=== PATIENT | female | born 1935 | race African-American/Black ===

== ENCOUNTER 2016-10-01 09:46 | Inpatient (IN) ==
[2016-10-01] MEDS ORDERED: ENOXAPARIN 100 MG/ML SYRINGE SUBCUT STA (10:16)
[2016-10-01] MEDS ORDERED: NITROGLYCERIN 2% OINT 1 INCH/GM PACK TOP STA (10:17)
[2016-10-01] MEDS ORDERED: NITROGLYCERIN 2% OINT 1 INCH/GM PACK TOP ONE (10:30)
[2016-10-01] MEDS ORDERED: ENOXAPARIN 80 MG/0.8 ML SYRINGE SUBCUT ONE (10:30)
--- NOTE | 2016-10-01 11:08 | XRay Report ---
XR chest 1V portable Indication: Shortness of breath. Chest one view: Comparison 06/08/2015. Pacemaker device and borderline cardiomegaly are stable. When compared to the prior examination, lungs are much better aerated than previous, although there is minimal interstitial prominence noted bilaterally. Lungs are hypoinflated as well suggesting an element of atelectasis. Surgical clips right axilla noted. Impression: Pulmonary hypoinflation and atelectasis. Borderline cardiomegaly. Markedly improved aeration when compared to May 2015. PROCEDURE INTERPRETED AT [facility] DEPARTMENT OF RADIOLOGY Final Report Signed by: Olvin Miranda M.D.
[2016-10-01 11:44] LABS: Basophils # 0.1 10*3/uL (0.0-0.2); Basophils % 1.4 % (0.0-0.8); Eosinophils # 0.5 10*3/uL (0.0-0.87); Eosinophils % 5.1 % (0.00-10.9); Hematocrit 34.4 VOL% (35.7-47.0); Hemoglobin 11.9 GM/DL (12.0-16.0); Immature Granulocytes % 0.3 %; Immature Granulocytes Absolute 0.03 #; Lymphocytes % 21.1 % (21.3-54.2); Mean Corpuscular HGB Conc 34.6 GM/DL (32-36); Mean Corpuscular Hemoglobin 24 PG (27-34); Mean Corpuscular Volume 68.9 FL (87-102); Mean Platelet Volume 9.8 FL (9.6-12.0); Monocytes # 0.6 10*3/uL (0.11-0.8); Monocytes % 6.1 % (1.7-12.7); Neutrophils # 6.2 10*3/uL (1.4-7.4); Platelet Count 232 T/CUMM (130-400); Red Blood Count 4.99 MC/CUMM (3.8-5.5); White Blood Count 9.4 T/CUMM (4-12)
[2016-10-01 11:51] LABS: Albumin 3.7 G/DL (3.4-5.0); Bilirubin,Total 0.5 MG/DL (0.2-1.0); Calcium 9.5 MG/DL (8.5-10.1); Osmolality,Calculated 282.1 MOS/KG (273-304); Potassium 4.2 MMOL/L (3.5-5.1); Thyroid Stimulating Hormone 0.939 uIU/ml (0.358-3.74); Total Protein 6.9 G/DL (6.4-8.3)
[2016-10-01 11:53] LABS: Troponin I Only 0.523 NG/ML (0.00-0.045)
[2016-10-01] MEDS ORDERED: NITROGLYCERIN SL 0.4 MG TABLET SL PRN (12:06)
[2016-10-01] MEDS ORDERED: MORPHINE 2 MG/1 ML SYRINGE IV PRN (12:06)
[2016-10-01] MEDS ORDERED: MAGNESIUM SULF RIDER 2 GM in PREMIX 1 EACH IV PRN (12:06)
[2016-10-01] MEDS ORDERED: ZALEPLON 5 MG CAPSULE PO PRN (12:06)
[2016-10-01] MEDS ORDERED: ONDANSETRON 4 MG/2 ML VIAL IV PRN (12:06)
[2016-10-01] MEDS ORDERED: MAGNESIUM SULF RIDER 4 GM in PREMIX 1 EACH IV PRN (12:06)
--- NOTE | 2016-10-01 12:06 | Emergency Department Note ---
Jonathan Sadler Brittany, am scribing for, and in the presence of, Alli Parada MD 10:19. Tal Sadler Doug C, MD, personally performed the services described in this documentation, ascribed by Nathalia Castillo in my presence, and it is both accurate and complete . Arrival - Arrival Chief Complaint: Arrhythmia/Palpitations Stated Complaint: heart pain ED Nursing Triage Note: Pt c/o palpitations, CP, and dizziness onset this am. Denies SOB Mode of Arrival: Ambulatory Limitations: No Limitations Source: Patient, RN Notes Reviewed - History of Present Illness HPI Narrative: Patient is a 80-year-old black female who states she developed palpitations, chest pain and weakness around 730 this morning. Patient's pain was brief but intense. Patient states she was frightened by this event and decided she should come the emergency room. Patient denies any associated nausea, vomiting , diaphoresis or radiation of discomfort. Patient states she has a history of coronary artery disease. Patient states he took a nitroglycerin at home when her pain is now relieved. Patient also has a history of a AICD placement but denies being shocked. Onset (ago): hour(s) (2) Consistency: constant Allergies/Adverse Reactions: Allergies Allergy/AdvReac Type Severity Reaction Status Date / Time acetaminophen [From Lortab] Allergy ITCHING Verified 10/01/16 09:55 hydrocodone [From Lortab] Allergy ITCHING Verified 10/01/16 09:55 Home Medications: Home Medications Medication Instructions Recorded Confirmed Type Ferrous Sulfate Tab [Feosol 325 mg PO BID 06/08/15 10/01/16 History Original Tab] Lisinopril/Hctz 20-25 [Prinzide 1 tablet PO DAILY 06/08/15 10/01/16 History 20-25] amLODIPine [Norvasc] 10 mg PO DAILY 06/08/15 10/01/16 History sitaGLIPtin [Januvia] 100 mg PO DAILY 06/08/15 10/01/16 History Aspirin EC Tab 81 mg PO DAILY tablet 06/10/15 10/01/16 Rx Carvedilol [Coreg] 25 mg PO BID tablet 06/10/15 10/01/16 Rx Cholecalciferol [Vitamin D3] 5,000 unit PO DAILY tablet 06/10/15 10/01/16 Rx Atorvastatin Calcium 20 mg PO DAILY 10/01/16 10/01/16 History Folic Acid Tab 1 mg PO DAILY 10/01/16 10/01/16 History Furosemide Tab [Lasix Tab] 40 mg PO BID 10/01/16 10/01/16 History Levocetirizine Dihydrochloride 5 mg PO QAM PRN 10/01/16 10/01/16 History Magnesium Oxide 400 mg PO DAILY 10/01/16 10/01/16 History Omeprazole [Prilosec] 20 mg PO BEDTIME 10/01/16 10/01/16 History Potassium Chloride 8 meq PO DAILY 10/01/16 10/01/16 History cloNIDine TAB [Catapres Tab] 0.2 mg PO DAILY 10/01/16 10/01/16 History Review of System - Review of System 12 point system: reviewed and no additional remarkable complaints except as stated - Review of System Constitutional: Absent: chills, diaphoresis, fever Eyes: Absent: vision change Head/Ears/Nose/Throat: Absent: nasal drainage, sore throat Respiratory: Absent: respiratory distress Cardiovascular: Present: chest pain, palpitations, syncope (near syncopal) Gastrointestinal: Absent: abdominal pain, nausea, vomiting, diarrhea, constipation Genitourinary female: Absent: dysuria, frequency, urgency Musculoskeletal: Absent: arm pain, back pain, leg pain, neck pain Skin: Absent: rash Neurological: Present: vertigo. Absent: headache Psychiatric: Absent: anxiety, depression Medical,Surgical,& Family Hx - Medical History Cardio: History of: CHF, Hypertension, [place] Neurology: No history of: Seizures Endocrine: History of: Diabetes Mellitus (NIDDM) Rheumatology: History of;: Gout Gastrointestinal: History of: GERD, Polyps - Surgical History Cardiac Surgeries: Sugical HX of: Internal Defibrillator Neurologic Surgeries: Patient denies: Neurologic Surgery Abdominal Surgeries: Surgical HX of: Appendectomy Reproductive Surgeries: Surgical HX of;: Breast Surgery (Bilateral Mastectomy), Hysterectomy, Tubal Ligation - Family History Family History: Reports;: Family Heart Disease (grandfather-htn) - Social History Smoking Status: Never smoker Frequency of Alcohol Use: None Type of Drug Use: None Exam Vital Signs: Vital Signs Temperature 97.5 F L 10/01/16 10:15 Pulse Rate 70 10/01/16 11:15 Respiratory Rate 18 06/18/17 11:15 Blood Pressure 154/72 10/01/16 11:15 O2 Sat by Pulse Oximetry 96 10/01/16 11:15 - General General appearance: alert, in no apparent distress - Head Head exam: Present: atraumatic, normocephalic, normal inspection - Eye Eye exam: Present: normal appearance, PERRL, EOMI - ENT ENT exam: Present: normal exam, normal oropharynx - Neck Neck exam: Present: normal inspection, full ROM, trachea midline - Chest Chest inspection: Present: symmetric chest wall rise. Absent: normal inspection (bilateral mastectomy) - Respiratory Respiratory exam: Present: normal lung sounds bilaterally. Absent: rales, rhonchi, wheezes - Cardiovascular Cardiovascular exam: Present: regular rate, normal rhythm, normal heart sounds. Absent: murmur, rubs, gallop - Abdominal Exam Abdominal exam: Present: soft, normal bowel sounds. Absent: distention, tenderness - Extremities Exam Extremities exam: Present: full ROM. Absent: normal inspection (lymphedema of the right upper extremity) - Back Exam Back exam: Present: normal inspection - Neurological Exam Neurological exam: Present: alert, oriented X3, CN II-XII intact. Absent: motor sensory deficit - Psychiatric Psychiatric exam: Present: normal affect, normal mood - Skin Skin exam: Present: warm, dry Course Course Narrative: Patient's clinical presentation, laboratory and radiograph findings were discussed with Dr. Tong Sun and patient be admitted to the Dr. Cunha service to the telemetry unit. Patient has been pain-free since her arrival here in the emergency room. Results - Labs CBC & BMP: 10/01/16 11:38 10/01/16 10:10 Lab Results: I have reviewed the patients labs Labs: Laboratory Tests 10/01/16 10:10 Magnesium 1.5 L Laboratory Tests 10/01/16 10/01/16 10:10 11:38 WBC 9.4 RBC 4.99 Hgb 11.9 L Hct 34.4 L MCV 68.9 L MCH 24 L Plt Count 232 Lymph % (Auto) 21.1 L Baso % (Auto) 1.4 H Sodium 135 L Potassium 4.2 Chloride 98 Carbon Dioxide 23 Anion Gap 18.2 H BUN 37 H Creatinine 1.20 H GFR Calculation 51 BUN/Creatinine Ratio 30.00 H Glucose 179 H Calcium 9.5 Troponin I 0.523 H - EKG EKG results: interpreted by SHABBIR, sinus rhythm (75 bpm), no acute changes - Diagnostic Findings Procedure: Chest x-ray: report reviewed by me (Pulmonary hypoinflation and atelectasis. Borderline cardiomegaly. Markedly improved aeration when compared to May 2015.) Disposition Clinical Impression: Non-STEMI (non-ST elevated myocardial infarction) Case discussed with: patient Disposition: Still a Patient Condition: Stable Time of Disposition: 12:06
--- NOTE | 2016-10-01 12:17 | EKG Report ---
Stationary ECG Study [facility] ER Test Date: 10/01/2016 10:01:58 AM Pat Name: ALIN FLYNN Department: Room: Gender: F [place]: Hannah Bruno : 1935 Requested by: Mike Sierra Order Number: [id number] Reading MD: MIKE EL Intervals [place] Rate: 75 P: 80 CO: 231 QRS: 0 QRSD: 104 T: 87 QT: 366 QTc: 394 Interpretive Statements SINUS RHYTHM WITH FIRST DEGREE AV BLOCK WITH OCCASIONAL VENTRICULAR PREMATURE COMPLEXES RSR (QR) IN V1/V2 CONSISTENT WITH RIGHT VENTRICULAR CONDUCTION DELAY POSSIBLE INFERIOR INFARCT, AGE UNDETERMINED ANTEROLATERAL INFARCT, PROBABLY RECENT Electronically Signed On 10-02-16 06:56:10 CDT by MIKE EL [email or web address]
[2016-10-01] MEDS ORDERED: CETIRIZINE 10 MG TABLET PO PRN (13:04)
[2016-10-01] MEDS: ENOXAPARIN 80 MG/0.8 ML SYRINGE SUBCUT SCH ×2 (13:15→23:54)
[2016-10-01] MEDS: SODIUM CHLORIDE 0.45% 1,000 ML IV SCH (13:52)
[2016-10-01 14:10] LABS: Apearance,Urine CLEAR (Clear); Bilirubin,Urine Negative (Negative); Blood, Urine Negative (Negative); Glucose,Urine (UA) Negative (Negative); Ketones,Urine Negative (Negative); Nitrite,Urine Negative (Negative); Protein,Urine Negative; Squamous Epithelial Cell,Urine Occasional /HPF (0-10); Urine Color Straw (Yellow); Urine Specific Gravity 1.004 (1.001-1.035); Urine Urobilinogen < 2.0 EU/DL (0.2-1.0); WBC,Urine 1 /HPF (0-6)
--- NOTE | 2016-10-01 14:52 | Cardiology History & Physical ---
Assessment and Plan (1) Chest pain Status: Acute Assessment and plan: 1. 80-year-old modestly overweight hypertensive diabetic with remote anterior [place] 1993 with angioplasty, status post heart catheterization 16 months ago had sudden palpitations and brief severe chest pain for only a minute or so this morning which alarmed her, but no symptoms before that or after that. 2. Modest troponin elevation of 0.5 initially less than 3 hours after the event. 3. EKG shows old anterolateral [place] no change from previous. 4. Ms. London follows up with Dr. Cunha 5. Possible nonsustained VT? Given history, but this is not been seen on telemetry at 72 will have her ICD single-chamber interrogated in the morning ( single-chamber replaced May 2012 for EOL) 6. Ejection fraction approximate 30% in the past; an approximate 25% and her heart catheterization. Current Visit: Yes (2) Palpitation Status: Acute Current Visit: Yes (3) Cardiomyopathy Status: Acute Current Visit: Yes History of Present Illness History of present illness: Ms. London is a 80 year old female followed Dr. son with remote anterior [place] with reported angioplasty 1993. This morning at 7:30 AM she had sudden palpitations with severe upper midsternal chest pain lasting less than a minute. She denies shortness of breath presyncope or syncope. She has not had significant swelling. She has been her usual self in the last few days with no problems. Home Medications Medication Instructions Recorded Confirmed Type Ferrous Sulfate Tab [Feosol 325 mg PO BID 06/08/15 10/01/16 History Original Tab] Lisinopril/Hctz 20-25 [Prinzide 1 tablet PO DAILY 06/08/15 10/01/16 History 20-25] amLODIPine [Norvasc] 10 mg PO DAILY 06/08/15 10/01/16 History sitaGLIPtin [Januvia] 100 mg PO DAILY 06/08/15 10/01/16 History Aspirin EC Tab 81 mg PO DAILY tablet 06/10/15 10/01/16 Rx Carvedilol [Coreg] 25 mg PO BID tablet 06/10/15 10/01/16 Rx Cholecalciferol [Vitamin D3] 5,000 unit PO DAILY tablet 06/10/15 10/01/16 Rx Atorvastatin Calcium 20 mg PO DAILY 10/01/16 10/01/16 History Folic Acid Tab 1 mg PO DAILY 10/01/16 10/01/16 History Furosemide Tab [Lasix Tab] 40 mg PO BID 10/01/16 10/01/16 History Levocetirizine Dihydrochloride 5 mg PO QAM PRN 10/01/16 10/01/16 History Magnesium Oxide 400 mg PO DAILY 10/01/16 10/01/16 History Omeprazole [Prilosec] 20 mg PO BEDTIME 10/01/16 10/01/16 History Potassium Chloride 8 meq PO DAILY 10/01/16 10/01/16 History cloNIDine TAB [Catapres Tab] 0.2 mg PO DAILY 10/01/16 10/01/16 History Allergies Allergy/AdvReac Type Severity Reaction Status Date / Time acetaminophen [From Lortab] Allergy ITCHING Verified 10/01/16 09:55 hydrocodone [From Lortab] Allergy ITCHING Verified 10/01/16 09:55 Medical,Surgical,& Family Hx - Medical History Cardio: History of: CHF, Hypertension, [place] Neurology: No history of: Seizures Endocrine: History of: Diabetes Mellitus (NIDDM) Rheumatology: History of;: Gout Gastrointestinal: History of: GERD, Polyps - Surgical History Cardiac Surgeries: Sugical HX of: Internal Defibrillator Neurologic Surgeries: Patient denies: Neurologic Surgery Abdominal Surgeries: Surgical HX of: Appendectomy Reproductive Surgeries: Surgical HX of;: Breast Surgery (Bilateral Mastectomy), Hysterectomy, Tubal Ligation - Family History Family History: Reports;: Family Heart Disease (grandfather-htn) - Social History Smoking Status: Never smoker Frequency of Alcohol Use: None Type of Drug Use: None Cardiology Physical Exam - Constitutional Vitals: Vital Signs Temp Pulse Resp BP Pulse Ox 97.5 F L 78 20 154/76 95 10/01/16 10:15 10/01/16 13:05 10/01/16 13:54 10/01/16 12:15 10/01/16 12:15 Intake and Output 09/30/16 10/01/16 10/01/16 23:59 07:59 15:59 Intake Total 240 / 240 Output Total 300 / 300 Balance -60 / -60 Intake: Oral 240 / 240 Output: Urine 300 / 300 Other: Weight 75.977 kg Patient Weight 10/01/16 23:59 Weight 75.977 kg General appearance: no acute distress, over weight - Head Head exam: Present: normal inspection, normocephalic, atraumatic - Respiratory Respiratory exam: Present: clear to auscultation bilaterally. Absent: stridor, wheezes - Cardiovascular Cardiovascular exam: Present: regular rate and rhythm. Absent: diastolic murmur , rubs - GI/Abdominal GI/Abdominal exam: Present: soft. Absent: tenderness - Extremities Exam Extremities exam: Present: other (Trace lower extremity edema) - Neurological Exam Neurological exam: Present: alert, oriented X3 Result/EKG - Labs CBC & BMP: 10/01/16 11:38 10/01/16 10:10 Labs: Laboratory Results - last 24 hr 10/01/16 10/01/16 10/01/16 10:10 10:10 11:38 WBC 9.4 RBC 4.99 Hgb 11.9 L Hct 34.4 L MCV 68.9 L MCH 24 L MCHC 34.6 RDW 16.0 Plt Count 232 MPV 9.8 Neut % (Auto) 66.0 Lymph % (Auto) 21.1 L Island % (Auto) 6.1 Eos % (Auto) 5.1 Baso % (Auto) 1.4 H Neut # (Auto) 6.2 Lymph # (Auto) 2.0 Island # (Auto) 0.6 Eos # (Auto) 0.5 Baso # (Auto) 0.1 Immature Gran % 0.3 Nucleated RBC % 0.0 Immature Gran # 0.03 Nucleated RBCs # 0.00 Sodium 135 L Potassium 4.2 Chloride 98 Carbon Dioxide 23 Anion Gap 18.2 H BUN 37 H Creatinine 1.20 H GFR Calculation 51 BUN/Creatinine Ratio 30.00 H Glucose 179 H Calculated Osmolality 282.1 Calcium 9.5 Magnesium 1.5 L Total Bilirubin 0.50 AST 37 ALT 28 Alkaline Phosphatase 111 Troponin I 0.523 H Total Protein 6.9 Albumin 3.7 Globulin 3.2 Albumin/Globulin Ratio 1.1 TSH 3rd Generation 0.939 Urine Color Urine Appearance Urine pH Ur Specific [place] Urine Protein Urine Glucose (UA) Urine Ketones Urine Blood Urine Nitrate Urine Bilirubin Urine Urobilinogen Urine Leukocytes Urine WBC Ur Squamous Epith Cells Ur Culture Indicated? 10/01/16 13:40 WBC RBC Hgb Hct MCV MCH MCHC RDW Plt Count MPV Neut % (Auto) Lymph % (Auto) Island % (Auto) Eos % (Auto) Baso % (Auto) Neut # (Auto) Lymph # (Auto) Island # (Auto) Eos # (Auto) Baso # (Auto) Immature Gran % Nucleated RBC % Immature Gran # Nucleated RBCs # Sodium Potassium Chloride Carbon Dioxide Anion Gap BUN Creatinine GFR Calculation BUN/Creatinine Ratio Glucose Calculated Osmolality Calcium Magnesium Total Bilirubin AST ALT Alkaline Phosphatase Troponin I Total Protein Albumin Globulin Albumin/Globulin Ratio TSH 3rd Generation Urine Color Straw Urine Appearance Clear Urine pH 7.0 Ur Specific [place] 1.004 Urine Protein Negative Urine Glucose (UA) Negative Urine Ketones Negative Urine Blood Negative Urine Nitrate Negative Urine Bilirubin Negative Urine Urobilinogen < 2.0 H Urine Leukocytes Trace Urine WBC 1 Ur Squamous Epith Cells Occasional Ur Culture Indicated? Not indicated
--- NOTE | 2016-10-01 15:07 | EKG Report ---
Stationary ECG Study [facility] Test Date: 10/01/2016 3:07:03 PM Pat Name: ALIN FLYNN Department: Room: 280 Gender: F Epic Application Coordinator: COOPER : 1935 Requested by: Mike Sierra Order Number: [id number] Reading MD: MIKE EL Intervals [place] Rate: 76 P: 78 ME: 224 QRS: -29 QRSD: 101 T: 79 QT: 364 QTc: 394 Interpretive Statements SINUS RHYTHM WITH PROLONGED ME INTERVAL WITH FREQUENT VENTRICULAR PREMATURE COMPLEXES INFEROLATERAL MYOCARDIAL INFARCTION, OF INDETERMINATE POSSIBLE IN EVOLUTION/RECENT. Electronically Signed On 10-02-16 07:21:11 CDT by MIKE EL [email or web address]
[2016-10-01 15:31] LABS: Troponin I Only 0.737 NG/ML (0.00-0.045)
[2016-10-01] MEDS: NITROGLYCERIN 2% OINT 1 INCH/GM PACK TOP SCH ×2 (17:33→23:41)
[2016-10-01 18:29] LABS: Troponin I Only 0.713 NG/ML (0.00-0.045)
[2016-10-01] MEDS: FERROUS SULFATE 325 MG TABLET PO SCH (21:08)
[2016-10-01] MEDS: FUROSEMIDE 40 MG TABLET PO SCH (21:08)
[2016-10-01] MEDS: METOPROLOL TARTRATE 25 MG TABLET PO SCH (21:08)
[2016-10-01 22:30] LABS: Troponin I Only 0.502 NG/ML (0.00-0.045)
[2016-10-02 05:08] LABS: Osmolality,Calculated 284.4 MOS/KG (273-304); Potassium 3.1 MMOL/L (3.5-5.1); Risk Ratio 2.42; VLDL CHOLESTEROL 16.6 MG/DL
[2016-10-02] MEDS: NITROGLYCERIN 2% OINT 1 INCH/GM PACK TOP SCH ×2 (06:28→11:20)
[2016-10-02] MEDS: amLODIPine 10 MG TABLET PO SCH (08:15)
[2016-10-02] MEDS: FOLIC ACID 1 MG TABLET PO SCH (08:16)
[2016-10-02] MEDS: CHOLECALCIFEROL 1,000 UNIT TABLET PO SCH (08:16)
[2016-10-02] MEDS: METOPROLOL TARTRATE 25 MG TABLET PO SCH (08:16)
[2016-10-02] MEDS: ASPIRIN EC 81 MG TABLET PO SCH (08:16)
[2016-10-02] MEDS: ATORVASTATIN 20 MG TABLET PO SCH (08:16)
[2016-10-02] MEDS: sitaGLIPtin 100 MG TABLET PO SCH (08:17)
[2016-10-02] MEDS: PANTOPRAZOLE 40 MG TABLET PO SCH (08:17)
[2016-10-02] MEDS: FUROSEMIDE 40 MG TABLET PO SCH ×2 (08:17→21:01)
[2016-10-02] MEDS: SODIUM CHLORIDE 0.45% 1,000 ML IV SCH (08:18)
[2016-10-02] MEDS: FERROUS SULFATE 325 MG TABLET PO SCH ×2 (08:18→21:00)
[2016-10-02] MEDS ORDERED: MAGNESIUM OXIDE 400 MG TABLET PO SCH (09:00)
[2016-10-02] MEDS ORDERED: POTASSIUM CHLORIDE 8 MEQ CAPSULE PO SCH (09:00)
[2016-10-02] MEDS ORDERED: LISINOPRIL/HCTZ 20-25 MG TABLET PO SCH (09:00)
[2016-10-02] MEDS: POTASSIUM CHLORIDE 20 MEQ TABLET PO PRN ×2 (09:24→10:57)
[2016-10-02] MEDS ORDERED: POTASSIUM CHLORIDE 20 MEQ TABLET PO ONE ×3 (11:27→13:30)
[2016-10-02] MEDS: ENOXAPARIN 80 MG/0.8 ML SYRINGE SUBCUT SCH (11:36)
[2016-10-02] MEDS: SPIRONOLACTONE 25 MG TABLET PO SCH (11:36)
--- NOTE | 2016-10-02 13:09 | Cardiology Progress Note ---
Kory Sadler April RN, am scribing for, and in the presence of, Norma Trujillo, 13 :07. 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 Nothing to suggest ischemia at this time she had a left heart catheterization approximately 16 months ago. She was adequately revascularized at this time. Current Visit: Yes Cardiology - PN: Subj Interval history: Fish Packer: Dr. Cunha PCP: Dr. Bravo SUMMARY: Ms. London is a 80-year-old female who is routinely followed by Dr. Cunha with history of post intra-infarct in 1993 and had recurrent anterior infarction with angioplasty LAD in 2003 in [place]. Heart cath done 06/08/2015 showed LAD is patent with only nonobstructive disease. It also showed the circumflex and RCA with only mild disease. Ejection fraction at that time was 25% with severe LV dysfunction and anteroapical hypokinesis. She had ICD implanted at [facility] in [place] 01/24/2007 that was placed for severe ischemic cardiomyopathy. She reports she was in her usual state of health until yesterday when 7:30 and 8:00 when she had sudden sharp left-sided chest pain that she reports "came out of nowhere and left suddenly after a few seconds". It was associated with feelings of her heart racing and dizziness. These palpitations lasted for 2-3 minutes. This is the only episode she has had like this and she has had none since then. She denies any known shocks from her defibrillator. EKG done yesterday showed sinus rhythm with first-degree AV block with occasional PVCs, heart rate of 75. Blood pressure admission was elevated at 160/106. Her troponin has been slightly elevated at 0.523, 0.737, 0.713, and 0.502. Review of her rhythm strips during the night, it appears she had some arrhythmias that appear to be nonsustained V. tach. Is also noted that she had some periods of bigeminy with rates in the 70s. Ms. London is seen this morning sitting up in chair in no acute distress. She denies any episodes of chest pain or palpitations since yesterday morning when she had the one episode. She also denies shortness of breath or dizziness. monitor and storage bin tender currently shows sinus rhythm with PVCs, heart rates in the 80s. Blood pressure is better than on admission, but continues to be elevated. This morning is 158/68. Home medicines have been resumed, her Coreg has been changed to Lopressor 25 mg p.o. twice daily. Magnesium this morning is 1.3, it is being replaced intravenously. Potassium is 3.1, it is being replaced orally. [employer] merchandising representative interrogated her ICD this morning. The interrogation found numerous episodes of ventricular tachycardia, some she has been paced out of. According to the interrogation, she received a shock yesterday morning about the time she was having the above-named episode. Ms. London has ventricular tachycardia seen on her ICD interrogation appears as though the shock brought her in. She had near syncope followed by very sharp quick chest pain appears to be from defibrillation as corresponds with her ICD interrogation. She has hypokalemic and hypomagnesemic. She has been ruled out for myocardial infarction. She is having complex ventricular ectopy on telemetry. We are in the process of repleting her electrolytes and will add higher dose of beta-marky. Exam (Progress Note) - Constitutional Vitals: Period Temp Pulse Resp BP Sys/Bhat Pulse Ox Last 24 Hr 96.9 F-98.7 F 54-82 16-20 140-186/63-106 94-99 General appearance: no acute distress, over weight - Head Head exam: Absent: abrasion, hematoma - Eye Eye exam: Absent: periorbital swelling, laceration to eyelids - Neck Neck exam: Absent: lymphadenopathy, tenderness - Respiratory Respiratory exam: Present: clear to auscultation bilaterally. Absent: accessory muscle use, chest wall tenderness - Cardiovascular Cardiovascular exam: Present: regular rate and rhythm. Absent: rubs - GI/Abdominal GI/Abdominal exam: Present: normal bowel sounds, soft. Absent: distended, tenderness - Extremities Exam Extremities exam: Present: calf tenderness, edema (Trace to bilateral lower extremities) - Neurological Exam Neurological exam: Present: alert, oriented X3 - Psychiatric Psychiatric exam: Present: normal affect, normal mood - Skin Skin exam: Present: warm, dry Result/EKG - Labs CBC & BMP: 10/01/16 11:38 10/02/16 04:16 Lab Results: I have reviewed the past 24 hour labs Labs: Laboratory Results - last 24 hr 10/01/16 10/01/16 10/01/16 10:10 10:10 11:38 WBC 9.4 RBC 4.99 Hgb 11.9 L Hct 34.4 L MCV 68.9 L MCH 24 L MCHC 34.6 RDW 16.0 Plt Count 232 MPV 9.8 Neut % (Auto) 66.0 Lymph % (Auto) 21.1 L Ray % (Auto) 6.1 Eos % (Auto) 5.1 Baso % (Auto) 1.4 H Neut # (Auto) 6.2 Lymph # (Auto) 2.0 Ray # (Auto) 0.6 Eos # (Auto) 0.5 Baso # (Auto) 0.1 Immature Gran % 0.3 Nucleated RBC % 0.0 Immature Gran # 0.03 Nucleated RBCs # 0.00 Sodium 135 L Potassium 4.2 Chloride 98 Carbon Dioxide 23 Anion Gap 18.2 H BUN 37 H Creatinine 1.20 H GFR Calculation 51 BUN/Creatinine Ratio 30.00 H Glucose 179 H Calculated Osmolality 282.1 Calcium 9.5 Magnesium 1.5 L Total Bilirubin 0.50 AST 37 ALT 28 Alkaline Phosphatase 111 Total Creatine Kinase CK-MB (CK-2) Troponin I 0.523 H Total Protein 6.9 Albumin 3.7 Globulin 3.2 Albumin/Globulin Ratio 1.1 Triglycerides Cholesterol LDL Cholesterol VLDL Cholesterol HDL Cholesterol Heart Disease Risk Ratio TSH 3rd Generation 0.939 Urine Color Urine Appearance Urine pH Ur Specific [place] Urine Protein Urine Glucose (UA) Urine Ketones Urine Blood Urine Nitrate Urine Bilirubin Urine Urobilinogen Urine Leukocytes Urine WBC Ur Squamous Epith Cells Ur Culture Indicated? 10/01/16 10/01/16 10/01/16 13:40 14:18 17:41 WBC RBC Hgb Hct MCV MCH MCHC RDW Plt Count MPV Neut % (Auto) Lymph % (Auto) Ray % (Auto) Eos % (Auto) Baso % (Auto) Neut # (Auto) Lymph # (Auto) Ray # (Auto) Eos # (Auto) Baso # (Auto) Immature Gran % Nucleated RBC % Immature Gran # Nucleated RBCs # Sodium Potassium Chloride Carbon Dioxide Anion Gap BUN Creatinine GFR Calculation BUN/Creatinine Ratio Glucose Calculated Osmolality Calcium Magnesium Total Bilirubin AST ALT Alkaline Phosphatase Total Creatine Kinase 245 H 259 H CK-MB (CK-2) 3.5 3.8 H Troponin I 0.737 H D 0.713 H Total Protein Albumin Globulin Albumin/Globulin Ratio Triglycerides Cholesterol LDL Cholesterol VLDL Cholesterol HDL Cholesterol Heart Disease Risk Ratio TSH 3rd Generation Urine Color Straw Urine Appearance Clear Urine pH 7.0 Ur Specific [place] 1.004 Urine Protein Negative Urine Glucose (UA) Negative Urine Ketones Negative Urine Blood Negative Urine Nitrate Negative Urine Bilirubin Negative Urine Urobilinogen < 2.0 H Urine Leukocytes Trace Urine WBC 1 Ur Squamous Epith Cells Occasional Ur Culture Indicated? Not indicated 10/01/16 10/02/16 21:21 04:16 WBC RBC Hgb Hct MCV MCH MCHC RDW Plt Count MPV Neut % (Auto) Lymph % (Auto) Ray % (Auto) Eos % (Auto) Baso % (Auto) Neut # (Auto) Lymph # (Auto) Ray # (Auto) Eos # (Auto) Baso # (Auto) Immature Gran % Nucleated RBC % Immature Gran # Nucleated RBCs # Sodium 140 Potassium 3.1 L Chloride 102 Carbon Dioxide 29 Anion Gap 12.1 BUN 28 H Creatinine 0.90 GFR Calculation 73 BUN/Creatinine Ratio 31.00 H Glucose 103 Calculated Osmolality 284.4 Calcium 10.0 Magnesium Total Bilirubin AST ALT Alkaline Phosphatase Total Creatine Kinase 232 H CK-MB (CK-2) 3.0 Troponin I 0.502 H D Total Protein Albumin Globulin Albumin/Globulin Ratio Triglycerides 83 Cholesterol 179 LDL Cholesterol 87.0 VLDL Cholesterol 16.6 HDL Cholesterol 74 H Heart Disease Risk Ratio 2.42 TSH 3rd Generation Urine Color Urine Appearance Urine pH Ur Specific [place] Urine Protein Urine Glucose (UA) Urine Ketones Urine Blood Urine Nitrate Urine Bilirubin Urine Urobilinogen Urine Leukocytes Urine WBC Ur Squamous Epith Cells Ur Culture Indicated? - EKG EKG results: interpreted by me EKG shows: sinus rhythm (With PVCs) Specialty Discharge - Follow Up or Referrals Cassandra Sadler Shea, , personally performed the services described in this documentation, ascribed by Lorena Horn RN in my presence, and it is both accurate and complete .
[2016-10-02] MEDS: CARVEDILOL 12.5 MG TABLET PO SCH (21:01)
[2016-10-02] MEDS: MAGNESIUM OXIDE 400 MG TABLET PO SCH (21:01)
[2016-10-03] MEDS: ENOXAPARIN 80 MG/0.8 ML SYRINGE SUBCUT SCH ×3 (00:52→21:22)
[2016-10-03 05:46] LABS: Calcium 9.8 MG/DL (8.5-10.1); Magnesium 2.2 MG/DL (1.8-2.4); Osmolality,Calculated 291.1 MOS/KG (273-304); Potassium 3.2 MMOL/L (3.5-5.1)
[2016-10-03] MEDS: FERROUS SULFATE 325 MG TABLET PO SCH ×2 (08:43→20:29)
[2016-10-03] MEDS: CHOLECALCIFEROL 1,000 UNIT TABLET PO SCH (08:43)
[2016-10-03] MEDS: LISINOPRIL 20 MG TABLET PO SCH (08:43)
[2016-10-03] MEDS: sitaGLIPtin 100 MG TABLET PO SCH (08:44)
[2016-10-03] MEDS: ATORVASTATIN 20 MG TABLET PO SCH (08:44)
[2016-10-03] MEDS: ASPIRIN EC 81 MG TABLET PO SCH (08:44)
[2016-10-03] MEDS: FUROSEMIDE 40 MG TABLET PO SCH (08:44)
[2016-10-03] MEDS: amLODIPine 10 MG TABLET PO SCH (08:44)
[2016-10-03] MEDS: FOLIC ACID 1 MG TABLET PO SCH (08:44)
[2016-10-03] MEDS: MAGNESIUM OXIDE 400 MG TABLET PO SCH ×2 (08:44→20:28)
[2016-10-03] MEDS: PANTOPRAZOLE 40 MG TABLET PO SCH (08:44)
[2016-10-03] MEDS: CARVEDILOL 12.5 MG TABLET PO SCH ×2 (08:44→20:29)
[2016-10-03] MEDS: SPIRONOLACTONE 25 MG TABLET PO SCH (08:45)
[2016-10-03] MEDS ORDERED: POTASSIUM CHLORIDE 20 MEQ TABLET PO ONE ×3 (08:55→11:00)
[2016-10-03] MEDS ORDERED: MAGNESIUM SULF RIDER 1 GM in PREMIX 1 EACH IV ONE (08:55)
[2016-10-03] MEDS ORDERED: POTASSIUM CHLORIDE 20 MEQ TABLET PO SCH (09:00)
--- NOTE | 2016-10-03 16:36 | Cardiology Progress Note ---
Kory Sadler April RN, am scribing for, and in the presence of, Norma Trujillo, 16 :36. 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 Cunha PCP: Dr. Bravo SUMMARY: Ms. London is a 80-year-old female who is routinely followed by Dr. Cunha with history of post intra-infarct in 1993 and had recurrent anterior infarction with angioplasty LAD in 2003 in [place]. Heart cath done 06/08/2015 showed LAD is patent with only nonobstructive disease. It also showed the circumflex and RCA with only mild disease. Ejection fraction at that time was 25% with severe LV dysfunction and anteroapical hypokinesis. She had ICD implanted at [facility] in [place] 01/24/2007 that was placed for severe ischemic cardiomyopathy. She reports she was in her usual state of health until Sunday when around 7:30 or 8:00 she had sudden sharp left-sided chest pain that she reports "came out of nowhere and left suddenly after a few seconds". It was associated with feelings of her heart racing and dizziness. These palpitations lasted for 2-3 minutes. This is the only episode she has had like this and she has had none since then. She denies any known shocks from her defibrillator. EKG done Sunday showed sinus rhythm with first-degree AV block with occasional PVCs, heart rate of 75. Blood pressure on admission was elevated at 160/106. Her troponin has been slightly elevated at 0.523, 0.737, 0.713, and 0.502. Review of her rhythm strips during the night Sunday night, it appears she had some arrhythmias that appear to be nonsustained V. tach. Is also noted that she had some periods of bigeminy with rates in the 70s. [employer] manufacturer's service representative interrogated her ICD 10/02/16. The interrogation found numerous episodes of ventricular tachycardia, some she has been paced out of. According to the interrogation, she received a shock 10/01/16 about the time she was having the above-named episode. 10/03/2016: This morning she is seen sitting up in chair in no acute distress. She denies any chest pain or defibrillator shocks. She also denies any shortness of breath, palpitations, or dizziness. In reviewing the front desk monitor strips, she has had no ventricular tachycardia during the night. He was monitor currently shows sinus rhythm with PVCs, heart rates in the 80s. Her magnesium was repleted yesterday, today it is 2.2. We will go ahead and administer 1 g magnesium IV 1 dose. Her potassium continues to be low at 3.2, will give K-Dur 20 meq every hour 3 doses. Clearly Ms London is much better. Potassium did not improve much we will continue to escalate doses and replace with magnesium empirically. No significant ectopy. She states that she feels better she is lying flat in the bed and I think we can decrease her diuretics. Exam (Progress Note) - Constitutional Vitals: Period Temp Pulse Resp BP Sys/Bhat Pulse Ox Last 24 Hr 96.7 F-98.1 F 61-73 16-18 115-151/54-83 97-98 General appearance: no acute distress, over weight - Head Head exam: Absent: abrasion, hematoma - Eye Eye exam: Absent: periorbital swelling, laceration to eyelids - Respiratory Respiratory exam: Present: clear to auscultation bilaterally. Absent: accessory muscle use, chest wall tenderness - Cardiovascular Cardiovascular exam: Present: regular rate and rhythm. Absent: rubs - GI/Abdominal GI/Abdominal exam: Present: normal bowel sounds, soft. Absent: distended, tenderness - Extremities Exam Extremities exam: Present: calf tenderness, edema (Trace to bilateral lower extremities) - Neurological Exam Neurological exam: Present: alert, oriented X3 - Psychiatric Psychiatric exam: Present: normal affect, normal mood - Skin Skin exam: Present: warm, dry Result/EKG - Labs CBC & BMP: 10/01/16 11:38 10/03/16 04:28 Lab Results: I have reviewed the past 24 hour labs Labs: Laboratory Results - last 24 hr 10/02/16 10/03/16 10/03/16 Unknown 04:28 07:40 Sodium 142 Potassium 3.2 L Chloride 104 Carbon Dioxide 26 Anion Gap 15.2 H BUN 37 H Creatinine 1.20 H GFR Calculation 51 BUN/Creatinine Ratio 30.00 H Glucose 97 POC Glucose 101 Calculated Osmolality 291.1 Calcium 9.8 Magnesium 1.3 L 2.2 - EKG EKG results: interpreted by me EKG shows: sinus rhythm (With PVCs) Specialty Discharge - Follow Up or Referrals ICassandra Shea, , personally performed the services described in this documentation, ascribed by Lorena Horn RN in my presence, and it is both accurate and complete [id number] .
[2016-10-03] MEDS: POTASSIUM CHLORIDE 20 MEQ TABLET PO SCH (21:19)
[2016-10-04 06:08] LABS: Calcium 9.7 MG/DL (8.5-10.1); Magnesium 2.3 MG/DL (1.8-2.4); Osmolality,Calculated 292.3 MOS/KG (273-304); Potassium 4.3 MMOL/L (3.5-5.1)
[2016-10-04 07:43] VITALS: BP 141/65
[2016-10-04] MEDS ORDERED: FUROSEMIDE 40 MG TABLET PO SCH (09:00)
[2016-10-04] MEDS: ENOXAPARIN 80 MG/0.8 ML SYRINGE SUBCUT SCH ×2 (09:03→09:10)
[2016-10-04] MEDS: ASPIRIN EC 81 MG TABLET PO SCH (09:04)
[2016-10-04] MEDS: FOLIC ACID 1 MG TABLET PO SCH (09:04)
[2016-10-04] MEDS: ATORVASTATIN 20 MG TABLET PO SCH (09:04)
[2016-10-04] MEDS: FERROUS SULFATE 325 MG TABLET PO SCH (09:04)
[2016-10-04] MEDS: amLODIPine 10 MG TABLET PO SCH (09:04)
[2016-10-04] MEDS: CHOLECALCIFEROL 1,000 UNIT TABLET PO SCH (09:04)
[2016-10-04] MEDS: POTASSIUM CHLORIDE 20 MEQ TABLET PO SCH (09:05)
[2016-10-04] MEDS: LISINOPRIL 20 MG TABLET PO SCH (09:05)
[2016-10-04] MEDS: sitaGLIPtin 100 MG TABLET PO SCH (09:05)
[2016-10-04] MEDS: PANTOPRAZOLE 40 MG TABLET PO SCH (09:05)
[2016-10-04] MEDS: SPIRONOLACTONE 25 MG TABLET PO SCH (09:05)
[2016-10-04] MEDS: MAGNESIUM OXIDE 400 MG TABLET PO SCH (09:05)
[2016-10-04] MEDS: CARVEDILOL 12.5 MG TABLET PO SCH (09:05)
--- NOTE | 2016-10-04 13:22 | Discharge Summary ---
Kory Sadler April RN, am scribing for, and in the presence of, Norma Trujillo DO 13 :22. Hospital Course - Hospital Course Hospital Course: [employer] Shift Lead: Dr. Leon PCP: Dr. Bravo SUMMARY: Ms. London is a 80-year-old female who is routinely followed by Dr. Leon with history of anterior infarct in 1993 and had recurrent anterior infarction with angioplasty LAD in 2003 in [place]. Heart cath done 06/08/2015 showed LAD is patent with only nonobstructive disease. It also showed the circumflex and RCA with only mild disease. Ejection fraction at that time was 25% with severe LV dysfunction and anteroapical hypokinesis. She had ICD implanted at [facility] in [place] 01/24/2007 that was placed for severe ischemic cardiomyopathy. She reports she was in her usual state of health until Sunday when around 7:30 or 8:00 she had sudden sharp left-sided chest pain that she reports "came out of nowhere and left suddenly after a few seconds". It was associated with feelings of her heart racing and dizziness. These palpitations lasted for 2-3 minutes. This is the only episode she has had like this and she has had none since then. She denies any known shocks from her defibrillator. EKG done Sunday showed sinus rhythm with first-degree AV block with occasional PVCs, heart rate of 75. Blood pressure on admission was elevated at 160/106. Her troponin has been slightly elevated at 0.523, 0.737, 0.713, and 0.502. Review of her rhythm strips during the night Sunday night, it appears she had some arrhythmias that appear to be nonsustained V. tach. Is also noted that she had some periods of bigeminy with rates in the 70s. [employer] student services representative interrogated her ICD 10/02/16. The interrogation found numerous episodes of ventricular tachycardia, some she has been paced out of. According to the interrogation, she received a shock 10/01/16 about the time she was having the above-named episode. During her hospital stay, Ms. London's magnesium and potassium were replaced today her potassium is 4.3, magnesium is 2.3. She has had no further episodes of V. tach since the and is having much less frequent PVCs with no bigeminy noted. Currently she is seen resting in bed no acute distress. She denies any chest pain, shortness of breath, palpitations, dizziness. document analyst currently shows sinus rhythm with heart rates in the 60s. Her creatinine has elevated slightly during this admission a 1.5. We will have her check this as well as her electrolytes in the office with Dr. Leon next week. Ms. London has reached maximum benefit from this hospitalization and will be discharged home today. She will be discharged home on her home medications with the following changes: Magnesium oxide increased to 400 mg twice daily Lasix decreased to 40 mg daily Potassium increased to 20 meq daily Prilosec will be changed to Pepcid 20 mg twice daily Prinzide will be discontinued Add Prinivil 20 mg daily Add Aldactone 25 mg daily We have discussed with the patient that the chest pain she felt was her defibrillator firing. We have instructed her she has this again to immediately call Dr. Leon's office or present to the emergency department. We have also instructed her on the importance of taking her medications without fail. We will schedule her to see Dr. Leon back in office in 2 weeks with an EKG, we will have her get BMP mag and CBC next week. 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 Leon October 16 at 11:20 AM bmp mag cbc next week, fu with dr leon in 2 weeks with EKG) Discharge Plan - Discharge Data Disposition: Disch To Home/Self Care Condition at Discharge: Stable Discharge Diet: heart healthy Activity: resume usual activities as tolerated Hygiene: no restrictions Weight Bearing at Discharge: weight bear as tolerated Driving: no restrictions Contact your physician if you experience:: fever over 101, Difficulty voiding, Redness or swelling, Nausea/Vomiting, Shortness of breath, Bleeding, pain uncontrolled by pain medications - Discharge Medications New Famotidine Tab [Pepcid Tab] 20 mg PO BID #60 tablet Lisinopril [Prinivil] 20 mg PO DAILY #30 tablet Magnesium Oxide 400 mg PO BID #60 tablet Nitroglycerin Sl Tab [Nitrostat] 0.4 mg SL Q5M PRN #25 tablet PRN Reason: Chest Pain Potassium Chloride Cap/Tab [K Dur] 20 meq PO BID #60 tablet Furosemide Tab [Lasix Tab] 40 mg PO DAILY #30 tablet Spironolactone [Aldactone] 25 mg PO DAILY #30 tablet Continue sitaGLIPtin [Januvia] 100 mg PO DAILY amLODIPine [Norvasc] 10 mg PO DAILY Ferrous Sulfate Tab [Feosol Original Tab] 325 mg PO BID Aspirin EC Tab 81 mg PO DAILY tablet Carvedilol [Coreg] 25 mg PO BID tablet Cholecalciferol [Vitamin D3] 5,000 unit PO DAILY tablet Levocetirizine Dihydrochloride 5 mg PO QAM PRN PRN Reason: allergies Atorvastatin Calcium 20 mg PO DAILY cloNIDine TAB [Catapres Tab] 0.2 mg PO DAILY Folic Acid Tab 1 mg PO DAILY Discontinued Lisinopril/Hctz 20-25 [Prinzide 20-25] 1 tablet PO DAILY Magnesium Oxide 400 mg PO DAILY Furosemide Tab [Lasix Tab] 40 mg PO BID Potassium Chloride 8 meq PO DAILY Omeprazole [Prilosec] 20 mg PO BEDTIME - Follow Up or Referral Follow Up: Braydon Leon MD [Physician] - 10/16/16 11:20 am (Lab work September at 1:[address] Leon October 16 at 11:20 AM bmp mag cbc next week, fu with dr leon in 2 weeks with EKG) - Forms/Instructions Instructions: Myocardial Infarction (GEN), Coronary Artery Disease (GEN), Left Heart Catheterization (DC), Implantable Cardioverter Defibrillator (DC), Heart Healthy Diet (GEN) Exam - Constitutional Vitals: Period Temp Pulse Resp BP Sys/Bhat Pulse Ox Last 24 Hr 96.9 F-98.9 F 61-70 18-20 122-141/60-65 96-99 General appearance: no acute distress, over weight - Head Head exam: Absent: abrasion, hematoma - Eye Eye exam: Absent: periorbital swelling, laceration to eyelids - Neck Neck exam: Absent: tenderness - Respiratory Respiratory exam: Present: clear to auscultation bilaterally. Absent: accessory muscle use, chest wall tenderness - Cardiovascular Cardiovascular exam: Present: regular rate and rhythm - GI/Abdominal GI/Abdominal exam: Present: normal bowel sounds, soft. Absent: distended, tenderness - Extremities Exam Extremities exam: Absent: calf tenderness, edema - Neurological Exam Neurological exam: Present: alert, oriented X3 - Psychiatric Psychiatric exam: Present: normal affect, normal mood - Skin Skin exam: Present: warm, dry Discharge Results Procedures and tests throughout hospitalization: Pending Orders 10/05/16 04:00 Basic Metabolic Panel w/Mg IN AM Labs on day of discharge: Labs from last 24 hours 10/04/16 10/04/16 10/03/16 07:09 04:17 19:34 Sodium 141 Potassium 4.3 Chloride 105 Carbon Dioxide 28 Anion Gap 12.3 BUN 47 H D Creatinine 1.50 H GFR Calculation 39 BUN/Creatinine Ratio 31.00 H Glucose 102 POC Glucose 99 120 H Calculated Osmolality 292.3 Calcium 9.7 Magnesium 2.3 10/03/16 15:22 Sodium Potassium Chloride Carbon Dioxide Anion Gap BUN Creatinine GFR Calculation BUN/Creatinine Ratio Glucose POC Glucose 121 H Calculated Osmolality Calcium Magnesium - Imaging and Cardiology Procedure: Chest x-ray: report reviewed by me DS: Provider Consults: 10/02/16 06:27 Consult to Cardiac Rehabilitation [CONS] Routine Reason for Cardiac Rehabilitation: Other Consult Comment: stemi report Expected date of discharge: 10/04/16 ICassandra Shea, DO, personally performed the services described in this documentation, ascribed by Lorena Horn RN in my presence, and it is both accurate and complete [id number] .
[2016-10-04] MEDS ORDERED: FAMOTIDINE 20 MG TABLET PO SCH (21:00)
== END 2016-10-04 14:00 | disposition home or self-care (01) | DRG 310 ==
LOC: N.ED 09:46 → N.EDINP 12:06 → N.TELEN 12:49
PROVIDERS: ADMIT Internal Medicine Cardiovascular Disease; ATTEND Internal Medicine Cardiovascular Disease

== ENCOUNTER 2017-05-03 06:15 | Inpatient (IN) ==
[2017-05-03] MEDS ORDERED: DILTIAZEM 100 MG VIAL.ADD IV ONE (06:25)
[2017-05-03] MEDS ORDERED: DILTIAZEM 50 MG/10 ML VIAL IV ONE (06:25)
[2017-05-03] MEDS ORDERED: SODIUM CHLORIDE 0.9% 100 ML IV ONE (06:27)
[2017-05-03] MEDS ORDERED: DILTIAZEM 50 MG/10 ML VIAL IV STA (06:29)
[2017-05-03] MEDS ORDERED: DILTIAZEM INJ 100 MG in SODIUM CHLORIDE 0.9% 100 ML IV SCH (06:30)
[2017-05-03] MEDS ORDERED: MAGNESIUM SULF RIDER 2 GM in PREMIX 1 EACH IV STA (06:30)
[2017-05-03] MEDS ORDERED: MAGNESIUM SULF RIDER 50 ML IV ONE (06:30)
[2017-05-03] MEDS ORDERED: AMIODARONE INJ 150 MG in DEXTROSE 5% 100 ML IV ONE ×2 (06:45→07:53)
[2017-05-03] MEDS ORDERED: AMIODARONE 450 MG/9 ML VIAL IV ONE (06:47)
[2017-05-03] MEDS ORDERED: AMIODARONE 150 MG/3 ML VIAL ONE (06:47)
[2017-05-03 06:50] LABS: Basophils % 0.2 % (0.0-0.8); Eosinophils % 0.2 % (0.00-10.9); Hematocrit 33.3 VOL% (35.7-47.0); Hemoglobin 11.1 GM/DL (12.0-16.0); Immature Granulocytes % 0.6 %; Lymphocytes # 2.2 10*3/uL (1.4-4.0); Lymphocytes % 12.5 % (21.3-54.2); Mean Corpuscular HGB Conc 33.3 GM/DL (32-36); Mean Corpuscular Hemoglobin 23 PG (27-34); Mean Corpuscular Volume 68.7 FL (87-102); Monocytes # 1.2 10*3/uL (0.11-0.8); Monocytes % 7.2 % (1.7-12.7); Neutrophils # 13.7 10*3/uL (1.4-7.4); Neutrophils % 79.3 % (38.7-73.9); Platelet Count 254 T/CUMM (130-400); Red Blood Count 4.85 MC/CUMM (3.8-5.5); Red Cell Distribution Width 18.7 % (9.3-17.3); White Blood Count 17.3 T/CUMM (4-12)
[2017-05-03 06:55] LABS: INR 1.2; PT Patient Result 12.1 SECS; Partial Thromboplastin Time 25.7 SECS (0-40)
[2017-05-03] MEDS ORDERED: AMIODARONE INJ 450 MG in DEXTROSE 5% 241 ML IV SCH (07:00)
[2017-05-03 07:15] LABS: Burr Cells Slight; Giant Platelets Few; Hypochromasia 1+; Microcytosis Slight; Ovalocytes Slight; Platelet Estimate Adequate
[2017-05-03 07:32] LABS: Albumin 3.8 G/DL (3.4-5.0); Bilirubin,Total 0.6 MG/DL (0.2-1.0); Calcium 9.9 MG/DL (8.5-10.1); Osmolality,Calculated 287.1 MOS/KG (273-304); Potassium 5.5 MMOL/L (3.5-5.1); Thyroid Stimulating Hormone 1.19 uIU/ml (0.358-3.74); Total Protein 7.5 G/DL (6.4-8.3)
[2017-05-03 07:37] LABS: Troponin I Only 7.18 NG/ML (0.00-0.045)
[2017-05-03] MEDS ORDERED: ASPIRIN CHEW 81 MG TABLET PO STA (07:48)
[2017-05-03] MEDS ORDERED: ENOXAPARIN 40 MG/0.4 ML SYRINGE SUBCUT STA (07:49)
[2017-05-03] MEDS ORDERED: ENOXAPARIN 40 MG/0.4 ML SYRINGE ONE (07:59)
[2017-05-03 10:29] LABS: Barbiturates Screen,Urine Negative (Negative); Benzodiazepines Screen,Urine Negative (Negative); Cannabinoid Screen,Urine Negative (Negative); Opiate Screen,Urine Negative (Negative); Phencyclidine Screen,Urine Negative (Negative)
[2017-05-03] MEDS ORDERED: ONDANSETRON 4 MG/2 ML VIAL IV PRN (11:05)
[2017-05-03] MEDS ORDERED: MAGNESIUM SULF RIDER 4 GM in PREMIX 1 EACH IV PRN ×2 (11:05→12:14)
[2017-05-03] MEDS ORDERED: SODIUM CHLORIDE 0.9% 1,000 ML IV SCH (11:05)
[2017-05-03] MEDS ORDERED: BISACODYL 5 MG TABLET PO PRN (12:14)
[2017-05-03] MEDS ORDERED: POTASSIUM CHLORIDE RIDER 10 MEQ in PREMIX 1 EACH IV PRN (12:14)
[2017-05-03] MEDS ORDERED: MAGNESIUM SULF RIDER 2 GM in PREMIX 1 EACH IV PRN (12:14)
[2017-05-03] MEDS ORDERED: DOCUSATE SODIUM 100 MG CAPSULE PO PRN (12:30)
[2017-05-03] MEDS ORDERED: POTASSIUM CHLORIDE 20 MEQ TABLET PO PRN (12:36)
[2017-05-03] MEDS: PANTOPRAZOLE 40 MG TABLET PO SCH (14:22)
[2017-05-03] MEDS ORDERED: guaiFENesin/DM ER 600-30 MG TABLET PO PRN (14:45)
[2017-05-03 15:41] LABS: CKMB % 8.8 %
[2017-05-03 15:43] LABS: Troponin I Only 16.1 NG/ML (0.00-0.045)
[2017-05-03] MEDS: AMIODARONE INJ 450 MG in DEXTROSE 5% 241 ML IV SCH (16:15)
[2017-05-03] MEDS: CARVEDILOL 25 MG TABLET PO SCH (21:19)
[2017-05-03] MEDS: amLODIPine 10 MG TABLET PO SCH (21:19)
[2017-05-03] MEDS: FERROUS SULFATE 325 MG TABLET PO SCH (21:19)
[2017-05-03] MEDS: ZALEPLON 5 MG CAPSULE PO PRN (21:25)
[2017-05-04] MEDS ORDERED: HEPARIN DRIP 500 ML IV SCH (02:00)
[2017-05-04] MEDS ORDERED: HEPARIN 5,000 UNIT/1 ML VIAL IV ONE (02:30)
[2017-05-04 02:37] LABS: Basophils # 0.1 10*3/uL (0.0-0.2); Basophils % 0.5 % (0.0-0.8); Eosinophils # 0.4 10*3/uL (0.0-0.87); Eosinophils % 2.7 % (0.00-10.9); Hematocrit 28.4 VOL% (35.7-47.0); Hemoglobin 9.4 GM/DL (12.0-16.0); Immature Granulocytes % 0.4 %; Immature Granulocytes Absolute 0.05 #; Lymphocytes % 22.3 % (21.3-54.2); Mean Corpuscular HGB Conc 33.1 GM/DL (32-36); Mean Corpuscular Hemoglobin 23 PG (27-34); Mean Corpuscular Volume 68.9 FL (87-102); Monocytes # 1.3 10*3/uL (0.11-0.8); Monocytes % 9.5 % (1.7-12.7); Neutrophils # 8.6 10*3/uL (1.4-7.4); Neutrophils % 64.6 % (38.7-73.9); Platelet Count 229 T/CUMM (130-400); Red Blood Count 4.12 MC/CUMM (3.8-5.5); Red Cell Distribution Width 18.4 % (9.3-17.3); White Blood Count 13.3 T/CUMM (4-12)
[2017-05-04 02:38] LABS: Basophils # 0.1 10*3/uL (0.0-0.2); Basophils % 0.4 % (0.0-0.8); Eosinophils # 0.3 10*3/uL (0.0-0.87); Eosinophils % 2.5 % (0.00-10.9); Hematocrit 28.6 VOL% (35.7-47.0); Hemoglobin 9.6 GM/DL (12.0-16.0); Immature Granulocytes % 0.4 %; Immature Granulocytes Absolute 0.05 #; Lymphocytes # 2.9 10*3/uL (1.4-4.0); Mean Corpuscular HGB Conc 33.6 GM/DL (32-36); Mean Corpuscular Hemoglobin 23 PG (27-34); Mean Corpuscular Volume 67.3 FL (87-102); Mean Platelet Volume 10.6 FL (9.6-12.0); Monocytes # 1.3 10*3/uL (0.11-0.8); Monocytes % 10.1 % (1.7-12.7); Neutrophils # 8.4 10*3/uL (1.4-7.4); Neutrophils % 64.6 % (38.7-73.9); Platelet Count 201 T/CUMM (130-400); Red Blood Count 4.25 MC/CUMM (3.8-5.5); Red Cell Distribution Width 18.5 % (9.3-17.3)
[2017-05-04 02:44] LABS: INR 1.1; PT Patient Result 11.5 SECS
[2017-05-04 03:01] LABS: Albumin 3.1 G/DL (3.4-5.0); Bilirubin,Total 0.8 MG/DL (0.2-1.0); Magnesium 2.4 MG/DL (1.8-2.4); Osmolality,Calculated 298.1 MOS/KG (273-304); Potassium 4.1 MMOL/L (3.5-5.1); Total Protein 6.1 G/DL (6.4-8.3)
[2017-05-04] MEDS: HEPARIN DRIP 25,000 UNITS/500 ML PREMIX IV SCH (03:02)
[2017-05-04 03:09] LABS: CKMB % 4.9 %
[2017-05-04 03:10] LABS: Microcytosis 2+; Platelet Estimate Normal; Poikilocytosis Few
[2017-05-04 03:11] LABS: Troponin I Only 8.97 NG/ML (0.00-0.045)
[2017-05-04 03:17] LABS: Microcytosis 2+; Platelet Estimate Normal
[2017-05-04 07:17] LABS: Apearance,Urine CLEAR (Clear); Bilirubin,Urine Negative (Negative); Blood, Urine Negative (Negative); Glucose,Urine (UA) Negative (Negative); Ketones,Urine Negative (Negative); Mucus,Urine Occasional /LPF (Occasional); Nitrite,Urine Negative (Negative); Protein,Urine Negative; RBC,Urine <1 /HPF (0-4); Urine Color Straw (Yellow); Urine Specific Gravity 1.009 (1.001-1.035); Urine Urobilinogen < 2.0 EU/DL (0.2-1.0); WBC,Urine 1 /HPF (0-6)
[2017-05-04] MEDS: AMIODARONE INJ 450 MG in DEXTROSE 5% 241 ML IV SCH (08:22)
[2017-05-04] MEDS: SPIRONOLACTONE 25 MG TABLET PO SCH (09:14)
[2017-05-04] MEDS: CARVEDILOL 25 MG TABLET PO SCH ×2 (09:14→21:08)
[2017-05-04] MEDS: FUROSEMIDE 40 MG TABLET PO SCH (09:14)
[2017-05-04] MEDS: PANTOPRAZOLE 40 MG TABLET PO SCH (09:14)
[2017-05-04] MEDS: FERROUS SULFATE 325 MG TABLET PO SCH ×2 (09:14→21:09)
[2017-05-04] MEDS: FOLIC ACID 1 MG TABLET PO SCH (09:14)
[2017-05-04] MEDS: ASPIRIN EC 81 MG TABLET PO SCH (09:14)
[2017-05-04] MEDS: ATORVASTATIN 20 MG TABLET PO SCH (09:14)
[2017-05-04] MEDS: AMIODARONE 200 MG TABLET PO SCH ×2 (09:17→21:08)
[2017-05-04 10:24] LABS: INR 1.1; PT Patient Result 11.1 SECS
[2017-05-04] MEDS: amLODIPine 10 MG TABLET PO SCH (21:08)
[2017-05-04] MEDS: ZALEPLON 5 MG CAPSULE PO PRN (21:10)
[2017-05-05 05:15] LABS: Basophils # 0.1 10*3/uL (0.0-0.2); Basophils % 0.8 % (0.0-0.8); Eosinophils # 0.9 10*3/uL (0.0-0.87); Eosinophils % 6.8 % (0.00-10.9); Hematocrit 30.8 VOL% (35.7-47.0); Hemoglobin 10.5 GM/DL (12.0-16.0); Immature Granulocytes % 0.5 %; Immature Granulocytes Absolute 0.07 #; Lymphocytes # 2.9 10*3/uL (1.4-4.0); Lymphocytes % 22.4 % (21.3-54.2); Mean Corpuscular HGB Conc 34.1 GM/DL (32-36); Mean Corpuscular Hemoglobin 23 PG (27-34); Mean Corpuscular Volume 67.4 FL (87-102); Mean Platelet Volume 10.5 FL (9.6-12.0); Monocytes # 1.2 10*3/uL (0.11-0.8); Monocytes % 9.5 % (1.7-12.7); Neutrophils # 7.8 10*3/uL (1.4-7.4); Platelet Count 245 T/CUMM (130-400); Red Blood Count 4.57 MC/CUMM (3.8-5.5); Red Cell Distribution Width 18.6 % (9.3-17.3)
[2017-05-05] MEDS: HEPARIN DRIP 25,000 UNITS/500 ML PREMIX IV SCH (06:12)
[2017-05-05 07:11] LABS: Calcium 9.7 MG/DL (8.5-10.1); Magnesium 1.9 MG/DL (1.8-2.4); Potassium 4.1 MMOL/L (3.5-5.1)
[2017-05-05] MEDS: FOLIC ACID 1 MG TABLET PO SCH (08:11)
[2017-05-05] MEDS: PANTOPRAZOLE 40 MG TABLET PO SCH (08:11)
[2017-05-05] MEDS: AMIODARONE 200 MG TABLET PO SCH ×2 (08:11→20:29)
[2017-05-05] MEDS: ATORVASTATIN 20 MG TABLET PO SCH (08:11)
[2017-05-05] MEDS: FERROUS SULFATE 325 MG TABLET PO SCH ×2 (08:11→20:29)
[2017-05-05] MEDS: FUROSEMIDE 40 MG TABLET PO SCH (08:12)
[2017-05-05] MEDS: ASPIRIN EC 81 MG TABLET PO SCH (08:12)
[2017-05-05] MEDS: SPIRONOLACTONE 25 MG TABLET PO SCH (08:12)
[2017-05-05] MEDS: CARVEDILOL 25 MG TABLET PO SCH ×2 (08:12→20:29)
[2017-05-05] MEDS: amLODIPine 10 MG TABLET PO SCH (20:29)
[2017-05-05] MEDS: ZALEPLON 5 MG CAPSULE PO PRN (20:31)
[2017-05-06 05:22] LABS: Basophils # 0.1 10*3/uL (0.0-0.2); Basophils % 0.9 % (0.0-0.8); Eosinophils # 1.1 10*3/uL (0.0-0.87); Eosinophils % 7.6 % (0.00-10.9); Hematocrit 31.2 VOL% (35.7-47.0); Hemoglobin 10.1 GM/DL (12.0-16.0); Immature Granulocytes % 0.6 %; Immature Granulocytes Absolute 0.08 #; Mean Corpuscular HGB Conc 32.4 GM/DL (32-36); Mean Corpuscular Hemoglobin 23 PG (27-34); Mean Corpuscular Volume 69.5 FL (87-102); Mean Platelet Volume 10.7 FL (9.6-12.0); Monocytes # 1.3 10*3/uL (0.11-0.8); Monocytes % 9.2 % (1.7-12.7); Neutrophils # 8.3 10*3/uL (1.4-7.4); Neutrophils % 59.7 % (38.7-73.9); Platelet Count 238 T/CUMM (130-400); Red Blood Count 4.49 MC/CUMM (3.8-5.5); Red Cell Distribution Width 19.1 % (9.3-17.3); White Blood Count 13.8 T/CUMM (4-12)
[2017-05-06 05:52] LABS: Acanthocytes Few; Hypochromasia 1+; Microcytosis 1+
[2017-05-06 05:53] LABS: Platelet Estimate Normal
[2017-05-06 06:07] LABS: Magnesium 1.5 MG/DL (1.8-2.4); Osmolality,Calculated 283.7 MOS/KG (273-304); Potassium 4.1 MMOL/L (3.5-5.1)
[2017-05-06] MEDS: MAGNESIUM SULF RIDER 2 GM in PREMIX 1 EACH IV PRN (07:10)
[2017-05-06] MEDS: CARVEDILOL 25 MG TABLET PO SCH ×2 (08:04→20:06)
[2017-05-06] MEDS: FERROUS SULFATE 325 MG TABLET PO SCH ×2 (08:04→20:06)
[2017-05-06] MEDS: FOLIC ACID 1 MG TABLET PO SCH (08:04)
[2017-05-06] MEDS: PANTOPRAZOLE 40 MG TABLET PO SCH (08:05)
[2017-05-06] MEDS: AMIODARONE 200 MG TABLET PO SCH (08:05)
[2017-05-06] MEDS: ATORVASTATIN 20 MG TABLET PO SCH (08:05)
[2017-05-06] MEDS: FUROSEMIDE 40 MG TABLET PO SCH (08:05)
[2017-05-06] MEDS: ASPIRIN EC 81 MG TABLET PO SCH (08:05)
[2017-05-06] MEDS: SPIRONOLACTONE 25 MG TABLET PO SCH (08:05)
[2017-05-06] MEDS ORDERED: AMIODARONE 150 MG/3 ML VIAL ONE (08:52)
[2017-05-06] MEDS ORDERED: AMIODARONE INJ 150 MG in DEXTROSE 5% 100 ML IV ONE (08:54)
[2017-05-06] MEDS ORDERED: AMIODARONE INJ 450 MG in DEXTROSE 5% 241 ML IV SCH (09:30)
[2017-05-06] MEDS ORDERED: METOPROLOL TARTRATE 5 MG/5 ML VIAL IV ONE ×2 (09:46→09:48)
[2017-05-06] MEDS: MORPHINE 10 MG/1 ML VIAL IV PRN ×2 (09:59→15:38)
[2017-05-06] MEDS ORDERED: LIDOCAINE 100 MG/5 ML SYRINGE IV ONE (10:00)
[2017-05-06] MEDS: LIDOCAINE DRIP 2,000 MG/250 ML PREMIX IV SCH (10:00)
[2017-05-06] MEDS ORDERED: LIDOCAINE 100 MG/5 ML SYRINGE ONE ×2 (10:04→10:10)
[2017-05-06] MEDS ORDERED: LIDOCAINE DRIP 2,000 MG/250 ML PREMIX IV ONE (10:04)
[2017-05-06] MEDS ORDERED: LIDOCAINE 100 MG/5 ML SYRINGE IV STA (10:10)
[2017-05-06] MEDS: AMIODARONE INJ 450 MG in DEXTROSE 5% 241 ML IV SCH (16:52)
[2017-05-06] MEDS ORDERED: cloNIDine 0.1 MG TABLET PO PRN (18:25)
[2017-05-06 19:45] LABS: Troponin I Only 0.705 NG/ML (0.00-0.045)
[2017-05-06] MEDS: amLODIPine 10 MG TABLET PO SCH (20:06)
[2017-05-06] MEDS: ZALEPLON 5 MG CAPSULE PO PRN (20:08)
[2017-05-06 22:54] LABS: Troponin I Only 0.746 NG/ML (0.00-0.045)
[2017-05-07] MEDS: HEPARIN DRIP 25,000 UNITS/500 ML PREMIX IV SCH ×2 (01:45→16:03)
[2017-05-07 03:33] LABS: Basophils # 0.1 10*3/uL (0.0-0.2); Basophils % 0.5 % (0.0-0.8); Eosinophils # 0.8 10*3/uL (0.0-0.87); Eosinophils % 6.8 % (0.00-10.9); Hematocrit 29.7 VOL% (35.7-47.0); Hemoglobin 9.7 GM/DL (12.0-16.0); Immature Granulocytes % 0.4 %; Immature Granulocytes Absolute 0.05 #; Lymphocytes # 2.4 10*3/uL (1.4-4.0); Lymphocytes % 19.7 % (21.3-54.2); Mean Corpuscular HGB Conc 32.7 GM/DL (32-36); Mean Corpuscular Hemoglobin 23 PG (27-34); Mean Corpuscular Volume 69.4 FL (87-102); Mean Platelet Volume 10.7 FL (9.6-12.0); Monocytes # 1.1 10*3/uL (0.11-0.8); Monocytes % 8.8 % (1.7-12.7); Neutrophils # 7.9 10*3/uL (1.4-7.4); Neutrophils % 63.8 % (38.7-73.9); Platelet Count 247 T/CUMM (130-400); Red Blood Count 4.28 MC/CUMM (3.8-5.5); Red Cell Distribution Width 19.3 % (9.3-17.3); White Blood Count 12.4 T/CUMM (4-12)
[2017-05-07 04:44] LABS: Calcium 9.7 MG/DL (8.5-10.1); Magnesium 1.7 MG/DL (1.8-2.4); Osmolality,Calculated 283.7 MOS/KG (273-304); Potassium 3.9 MMOL/L (3.5-5.1)
[2017-05-07 04:50] LABS: Troponin I Only 0.485 NG/ML (0.00-0.045); Troponin I Only 0.496 NG/ML (0.00-0.045)
[2017-05-07] MEDS: MAGNESIUM SULF RIDER 2 GM in PREMIX 1 EACH IV PRN (06:23)
[2017-05-07 06:35] LABS: Acanthocytes Few; Hypochromasia 1+; Microcytosis 1+
[2017-05-07 06:36] LABS: Ovalocytes Slight; Platelet Estimate Normal
[2017-05-07] MEDS: FUROSEMIDE 40 MG TABLET PO SCH (08:58)
[2017-05-07] MEDS: SPIRONOLACTONE 25 MG TABLET PO SCH (08:58)
[2017-05-07] MEDS: FERROUS SULFATE 325 MG TABLET PO SCH ×2 (08:58→20:20)
[2017-05-07] MEDS: ASPIRIN EC 81 MG TABLET PO SCH (08:58)
[2017-05-07] MEDS: ATORVASTATIN 20 MG TABLET PO SCH (08:58)
[2017-05-07] MEDS: PANTOPRAZOLE 40 MG TABLET PO SCH (08:58)
[2017-05-07] MEDS: FOLIC ACID 1 MG TABLET PO SCH (08:58)
[2017-05-07] MEDS: CARVEDILOL 25 MG TABLET PO SCH ×2 (08:58→20:20)
[2017-05-07] MEDS: AMIODARONE INJ 450 MG in DEXTROSE 5% 241 ML IV SCH (10:14)
[2017-05-07] MEDS ORDERED: MAGNESIUM SULF RIDER 2 GM in PREMIX 1 EACH IV PRN (10:28)
[2017-05-07] MEDS ORDERED: DIAZEPAM 5 MG TABLET PO ONE (10:28)
[2017-05-07] MEDS ORDERED: diphenhydrAMINE CAP 25 MG CAPSULE PO ONE (10:28)
[2017-05-07] MEDS ORDERED: POTASSIUM CHLORIDE RIDER 10 MEQ in PREMIX 1 EACH IV PRN (10:28)
[2017-05-07] MEDS ORDERED: LIDOCAINE 1% 20 ML VIAL ONE (12:02)
[2017-05-07 12:08] LABS: Apearance,Urine CLEAR (Clear); Bilirubin,Urine Negative (Negative); Blood, Urine Negative (Negative); Glucose,Urine (UA) Negative (Negative); Hyaline Casts,Urine 1 /LPF (0-3); Ketones,Urine Negative (Negative); Mucus,Urine Occasional /LPF (Occasional); Nitrite,Urine Negative (Negative); Protein,Urine Negative; RBC,Urine <1 /HPF (0-4); Urine Color Colorless (Yellow); Urine Specific Gravity 1.004 (1.001-1.035); Urine Urobilinogen < 2.0 EU/DL (0.2-1.0); WBC,Urine <1 /HPF (0-6)
[2017-05-07] MEDS ORDERED: MIDAZOLAM 2 MG/2 ML VIAL ONE (13:15)
[2017-05-07] MEDS ORDERED: NITROGLYCERIN DRIP 50 MG/250 ML BOTTLE IV ONE (13:26)
[2017-05-07 15:14] LABS: PT Patient Result 10.6 SECS; Partial Thromboplastin Time 24.1 SECS (0-40)
[2017-05-07] MEDS: LIDOCAINE DRIP 2,000 MG/250 ML PREMIX IV SCH (16:14)
[2017-05-07] MEDS: MORPHINE 10 MG/1 ML VIAL IV PRN (16:15)
[2017-05-07] MEDS: ZALEPLON 5 MG CAPSULE PO PRN (20:20)
[2017-05-07] MEDS: amLODIPine 10 MG TABLET PO SCH (20:20)
[2017-05-08] MEDS: AMIODARONE INJ 450 MG in DEXTROSE 5% 241 ML IV SCH ×2 (01:15→19:26)
[2017-05-08] MEDS: HEPARIN DRIP 25,000 UNITS/500 ML PREMIX IV SCH (02:19)
[2017-05-08 05:49] LABS: Basophils # 0.1 10*3/uL (0.0-0.2); Basophils % 0.7 % (0.0-0.8); Eosinophils # 0.8 10*3/uL (0.0-0.87); Eosinophils % 6.5 % (0.00-10.9); Hematocrit 29.7 VOL% (35.7-47.0); Hemoglobin 9.5 GM/DL (12.0-16.0); Immature Granulocytes % 0.5 %; Immature Granulocytes Absolute 0.06 #; Lymphocytes # 2.5 10*3/uL (1.4-4.0); Lymphocytes % 20.3 % (21.3-54.2); Mean Corpuscular Hemoglobin 23 PG (27-34); Mean Corpuscular Volume 71.1 FL (87-102); Mean Platelet Volume 10.7 FL (9.6-12.0); Monocytes # 1.6 10*3/uL (0.11-0.8); Neutrophils # 7.2 10*3/uL (1.4-7.4); Platelet Count 222 T/CUMM (130-400); Red Blood Count 4.18 MC/CUMM (3.8-5.5); Red Cell Distribution Width 19.7 % (9.3-17.3); White Blood Count 12.3 T/CUMM (4-12)
[2017-05-08 06:14] LABS: Calcium 9.3 MG/DL (8.5-10.1); Magnesium 1.8 MG/DL (1.8-2.4); Osmolality,Calculated 281.7 MOS/KG (273-304); Potassium 4.6 MMOL/L (3.5-5.1)
[2017-05-08 07:29] LABS: Eosinophils 7 % (0-10); Hypochromasia 1+; Lymphocytes 23 % (20-55); Ovalocytes Slight; Platelet Estimate Adequate; Segmented Neutrophils 61 % (50-85); Total Cells Counted 100
[2017-05-08 07:30] LABS: Burr Cells Slight; Giant Platelets Few; Microcytosis 1+
[2017-05-08] MEDS: SPIRONOLACTONE 25 MG TABLET PO SCH (08:58)
[2017-05-08] MEDS: ASPIRIN EC 81 MG TABLET PO SCH (08:59)
[2017-05-08] MEDS: CARVEDILOL 25 MG TABLET PO SCH ×2 (08:59→20:00)
[2017-05-08] MEDS: ATORVASTATIN 20 MG TABLET PO SCH (09:00)
[2017-05-08] MEDS: FOLIC ACID 1 MG TABLET PO SCH (09:00)
[2017-05-08] MEDS: FERROUS SULFATE 325 MG TABLET PO SCH ×2 (09:00→20:00)
[2017-05-08] MEDS: FUROSEMIDE 40 MG TABLET PO SCH (09:00)
[2017-05-08] MEDS: PANTOPRAZOLE 40 MG TABLET PO SCH (09:01)
[2017-05-08] MEDS: AMIODARONE 200 MG TABLET PO SCH ×2 (09:57→20:01)
[2017-05-08] MEDS ORDERED: ENOXAPARIN 40 MG/0.4 ML SYRINGE SUBCUT SCH (10:00)
[2017-05-08] MEDS ORDERED: ENOXAPARIN 80 MG/0.8 ML SYRINGE SUBCUT SCH (14:30)
[2017-05-08] MEDS: INSULIN REGULAR 100 UNIT/ML SUBCUT SCH ×3 (15:06→21:29)
[2017-05-08] MEDS ORDERED: ENOXAPARIN 30 MG/0.3 ML SYRINGE SUBCUT ONE (15:18)
[2017-05-08] MEDS: MEXILETINE 150 MG CAPSULE PO SCH ×2 (15:24→21:29)
[2017-05-08] MEDS ORDERED: ALPRAZolam 0.25 MG TABLET PO PRN (16:14)
[2017-05-08] MEDS: ZALEPLON 5 MG CAPSULE PO PRN (20:00)
[2017-05-08] MEDS: amLODIPine 10 MG TABLET PO SCH (20:00)
[2017-05-08] MEDS: ENOXAPARIN 80 MG/0.8 ML SYRINGE SUBCUT SCH (20:06)
[2017-05-08] MEDS ORDERED: AMIODARONE 200 MG TABLET PO SCH (21:00)
[2017-05-08] MEDS ORDERED: AMIODARONE INJ 150 MG in DEXTROSE 5% 100 ML IV ONE (21:34)
[2017-05-08] MEDS ORDERED: SODIUM CHLORIDE 0.9% 500 ML IV ONE (22:06)
[2017-05-08 22:54] LABS: Apearance,Urine CLEAR (Clear); Bilirubin,Urine Negative (Negative); Blood, Urine Negative (Negative); Glucose,Urine (UA) Negative (Negative); Ketones,Urine Negative (Negative); Nitrite,Urine Negative (Negative); Protein,Urine Negative; RBC,Urine <1 /HPF (0-4); Urine Color Straw (Yellow); Urine Specific Gravity 1.023 (1.001-1.035); Urine Urobilinogen < 2.0 EU/DL (0.2-1.0); WBC,Urine <1 /HPF (0-6)
[2017-05-09] MEDS: MEXILETINE 150 MG CAPSULE PO SCH ×3 (06:20→21:16)
[2017-05-09 06:58] LABS: Basophils # 0.1 10*3/uL (0.0-0.2); Basophils % 0.6 % (0.0-0.8); Eosinophils # 0.6 10*3/uL (0.0-0.87); Eosinophils % 4.5 % (0.00-10.9); Hematocrit 30.2 VOL% (35.7-47.0); Immature Granulocytes % 1.2 %; Immature Granulocytes Absolute 0.17 #; Lymphocytes # 2.7 10*3/uL (1.4-4.0); Mean Corpuscular HGB Conc 33.1 GM/DL (32-36); Mean Corpuscular Hemoglobin 23 PG (27-34); Mean Corpuscular Volume 69.6 FL (87-102); Mean Platelet Volume 10.9 FL (9.6-12.0); Monocytes # 1.7 10*3/uL (0.11-0.8); Monocytes % 12.1 % (1.7-12.7); Neutrophils # 8.8 10*3/uL (1.4-7.4); Neutrophils % 62.6 % (38.7-73.9); Platelet Count 239 T/CUMM (130-400); Red Blood Count 4.34 MC/CUMM (3.8-5.5); Red Cell Distribution Width 19.7 % (9.3-17.3)
[2017-05-09 07:06] LABS: Calcium 9.8 MG/DL (8.5-10.1); Magnesium 1.7 MG/DL (1.8-2.4); Osmolality,Calculated 282.8 MOS/KG (273-304); Potassium 3.7 MMOL/L (3.5-5.1)
[2017-05-09 07:21] LABS: Burr Cells Slight; Giant Platelets Few; Hypochromasia 1+; Ovalocytes Slight; Platelet Estimate Adequate
[2017-05-09 07:22] LABS: Microcytosis Slight
[2017-05-09] MEDS: ENOXAPARIN 80 MG/0.8 ML SYRINGE SUBCUT SCH ×2 (08:13→21:17)
[2017-05-09] MEDS: MAGNESIUM SULF RIDER 2 GM in PREMIX 1 EACH IV PRN (08:14)
[2017-05-09] MEDS: INSULIN REGULAR 100 UNIT/ML SUBCUT SCH ×4 (09:05→21:29)
[2017-05-09] MEDS: ATORVASTATIN 20 MG TABLET PO SCH (09:25)
[2017-05-09] MEDS: FUROSEMIDE 40 MG TABLET PO SCH (09:26)
[2017-05-09] MEDS: PANTOPRAZOLE 40 MG TABLET PO SCH (09:26)
[2017-05-09] MEDS: ASPIRIN EC 81 MG TABLET PO SCH (09:26)
[2017-05-09] MEDS: SPIRONOLACTONE 25 MG TABLET PO SCH (09:26)
[2017-05-09] MEDS: FOLIC ACID 1 MG TABLET PO SCH (09:26)
[2017-05-09] MEDS: FERROUS SULFATE 325 MG TABLET PO SCH ×2 (09:26→21:16)
[2017-05-09] MEDS: CARVEDILOL 25 MG TABLET PO SCH ×2 (09:26→21:16)
[2017-05-09] MEDS: AMIODARONE INJ 450 MG in DEXTROSE 5% 241 ML IV SCH (10:28)
[2017-05-09] MEDS: ALPRAZolam 0.5 MG TABLET PO PRN ×2 (12:11→23:13)
[2017-05-09] MEDS: amLODIPine 10 MG TABLET PO SCH (21:16)
[2017-05-09] MEDS: ZALEPLON 5 MG CAPSULE PO PRN (23:13)
[2017-05-10] MEDS: ZALEPLON 5 MG CAPSULE PO PRN ×2 (00:19→21:17)
[2017-05-10] MEDS: AMIODARONE INJ 450 MG in DEXTROSE 5% 241 ML IV SCH ×2 (02:02→16:39)
[2017-05-10] MEDS: MEXILETINE 150 MG CAPSULE PO SCH ×3 (06:38→21:20)
[2017-05-10] MEDS: FERROUS SULFATE 325 MG TABLET PO SCH ×2 (08:53→21:17)
[2017-05-10] MEDS: SPIRONOLACTONE 25 MG TABLET PO SCH (08:53)
[2017-05-10] MEDS: CARVEDILOL 25 MG TABLET PO SCH ×2 (08:54→21:17)
[2017-05-10] MEDS: ATORVASTATIN 20 MG TABLET PO SCH (08:54)
[2017-05-10] MEDS: INSULIN REGULAR 100 UNIT/ML SUBCUT SCH ×3 (08:54→18:27)
[2017-05-10] MEDS: PANTOPRAZOLE 40 MG TABLET PO SCH (08:54)
[2017-05-10] MEDS: FOLIC ACID 1 MG TABLET PO SCH (08:54)
[2017-05-10] MEDS: ASPIRIN EC 81 MG TABLET PO SCH (08:54)
[2017-05-10] MEDS: FUROSEMIDE 40 MG TABLET PO SCH (08:54)
[2017-05-10] MEDS: ENOXAPARIN 80 MG/0.8 ML SYRINGE SUBCUT SCH ×2 (08:54→21:17)
[2017-05-10 08:56] LABS: Basophils # 0.1 10*3/uL (0.0-0.2); Basophils % 0.5 % (0.0-0.8); Eosinophils # 0.8 10*3/uL (0.0-0.87); Eosinophils % 6.2 % (0.00-10.9); Hematocrit 30.2 VOL% (35.7-47.0); Hemoglobin 9.9 GM/DL (12.0-16.0); Immature Granulocytes % 0.6 %; Immature Granulocytes Absolute 0.08 #; Lymphocytes % 16.1 % (21.3-54.2); Mean Corpuscular HGB Conc 32.8 GM/DL (32-36); Mean Corpuscular Hemoglobin 23 PG (27-34); Mean Corpuscular Volume 69.3 FL (87-102); Mean Platelet Volume 10.5 FL (9.6-12.0); Monocytes # 1.6 10*3/uL (0.11-0.8); Neutrophils # 7.9 10*3/uL (1.4-7.4); Neutrophils % 63.6 % (38.7-73.9); Platelet Count 260 T/CUMM (130-400); Red Blood Count 4.36 MC/CUMM (3.8-5.5); Red Cell Distribution Width 19.9 % (9.3-17.3); White Blood Count 12.5 T/CUMM (4-12)
[2017-05-10 09:14] LABS: Burr Cells Slight; Giant Platelets Few; Hypochromasia 1+; Ovalocytes Slight; Platelet Estimate Adequate
[2017-05-10 09:15] LABS: Microcytosis Slight
[2017-05-10 09:17] LABS: Calcium 9.6 MG/DL (8.5-10.1); Magnesium 2.1 MG/DL (1.8-2.4)
[2017-05-10 09:20] LABS: Albumin 3.2 G/DL (3.4-5.0); Bilirubin,Direct 0.16 MG/DL (0.0-0.20); Bilirubin,Indirect 0.3 MG/DL (0.0-1.0); Bilirubin,Total 0.5 MG/DL (0.2-1.0); Total Protein 6.5 G/DL (6.4-8.3)
[2017-05-10] MEDS: ACETAMINOPHEN 325 MG TABLET PO PRN (11:45)
[2017-05-10] MEDS: amLODIPine 10 MG TABLET PO SCH (21:17)
[2017-05-11] MEDS: INSULIN REGULAR 100 UNIT/ML SUBCUT SCH ×5 (00:30→22:22)
[2017-05-11] MEDS: MEXILETINE 150 MG CAPSULE PO SCH ×3 (05:39→21:34)
[2017-05-11 05:50] LABS: Basophils # 0.1 10*3/uL (0.0-0.2); Basophils % 0.5 % (0.0-0.8); Eosinophils # 0.9 10*3/uL (0.0-0.87); Eosinophils % 7.4 % (0.00-10.9); Hemoglobin 10.1 GM/DL (12.0-16.0); Immature Granulocytes % 0.5 %; Immature Granulocytes Absolute 0.06 #; Lymphocytes # 2.6 10*3/uL (1.4-4.0); Lymphocytes % 22.5 % (21.3-54.2); Mean Corpuscular HGB Conc 33.7 GM/DL (32-36); Mean Corpuscular Hemoglobin 23 PG (27-34); Mean Corpuscular Volume 67.9 FL (87-102); Mean Platelet Volume 10.6 FL (9.6-12.0); Monocytes # 1.6 10*3/uL (0.11-0.8); Monocytes % 13.8 % (1.7-12.7); Neutrophils # 6.3 10*3/uL (1.4-7.4); Neutrophils % 55.3 % (38.7-73.9); Platelet Count 274 T/CUMM (130-400); Red Blood Count 4.42 MC/CUMM (3.8-5.5); Red Cell Distribution Width 19.8 % (9.3-17.3); White Blood Count 11.5 T/CUMM (4-12)
[2017-05-11 06:19] LABS: Calcium 10.1 MG/DL (8.5-10.1); Magnesium 1.9 MG/DL (1.8-2.4); Osmolality,Calculated 278.1 MOS/KG (273-304); Potassium 3.9 MMOL/L (3.5-5.1)
[2017-05-11 06:26] LABS: Giant Platelets Few; Hypochromasia 1+; Microcytosis Slight; Ovalocytes Slight; Platelet Estimate Adequate
[2017-05-11] MEDS: PANTOPRAZOLE 40 MG TABLET PO SCH (09:43)
[2017-05-11] MEDS: ACETAMINOPHEN 325 MG TABLET PO PRN (09:43)
[2017-05-11] MEDS: ENOXAPARIN 80 MG/0.8 ML SYRINGE SUBCUT SCH ×2 (09:43→21:34)
[2017-05-11] MEDS: FERROUS SULFATE 325 MG TABLET PO SCH ×2 (09:44→21:34)
[2017-05-11] MEDS: ATORVASTATIN 20 MG TABLET PO SCH (09:45)
[2017-05-11] MEDS: ASPIRIN EC 81 MG TABLET PO SCH (09:45)
[2017-05-11] MEDS: SPIRONOLACTONE 25 MG TABLET PO SCH (09:45)
[2017-05-11] MEDS: FUROSEMIDE 40 MG TABLET PO SCH (09:45)
[2017-05-11] MEDS: FOLIC ACID 1 MG TABLET PO SCH (09:45)
[2017-05-11] MEDS: CARVEDILOL 25 MG TABLET PO SCH ×2 (09:45→21:33)
[2017-05-11] MEDS ORDERED: AMIODARONE INJ 450 MG in DEXTROSE 5% 241 ML IV ONE (11:00)
[2017-05-11] MEDS: AMIODARONE INJ 450 MG in DEXTROSE 5% 241 ML IV SCH (11:16)
[2017-05-11] MEDS ORDERED: ATORVASTATIN 20 MG TABLET PO SCH (21:00)
[2017-05-11] MEDS: amLODIPine 10 MG TABLET PO SCH (21:34)
[2017-05-11 21:38] VITALS: BP 139/78
[2017-05-12] MEDS: AMIODARONE INJ 450 MG in DEXTROSE 5% 241 ML IV SCH (00:11)
== END 2017-05-12 00:12 | disposition hospice, home (50) | DRG 287 ==
LOC: EDBD → EDUNIT# → N.ED 06:15 → N.EDINP 08:22 → N.TELEN 10:45 → N.ICU 05-06 09:04 → N.TELES 05-10 18:23
PROVIDERS: ADMIT Internal Medicine Interventional Cardiology; ATTEND Internal Medicine Interventional Cardiology

== ENCOUNTER 2018-01-25 09:23 | Inpatient (IN) ==
[2018-01-25] MEDS ORDERED: FUROSEMIDE 100 MG/10 ML VIAL IV STA (09:52)
[2018-01-25] MEDS ORDERED: hydrALAZINE 20 MG/1 ML VIAL IV STA (09:53)
[2018-01-25 10:28] LABS: Basophils % 0.3 % (0.0-0.8); Monocytes % 11.4 % (1.7-12.7); Red Blood Count 4.29 MC/CUMM (3.8-5.5)
[2018-01-25 10:33] LABS: Apearance,Urine CLEAR (Clear); Bacteria,Urine Occasional /HPF (Few); Bilirubin,Urine Negative (Negative); Blood, Urine Small mg/dL (Negative); Glucose,Urine (UA) Negative (Negative); Ketones,Urine Negative (Negative); Mucus,Urine Occasional /LPF (Occasional); Nitrite,Urine Negative (Negative); Protein,Urine 100 MG/DL; RBC,Urine 1 /HPF (0-4); Squamous Epithelial Cell,Urine Occasional /HPF (0-10); Urine Color Yellow (Yellow); Urine Specific Gravity 1.008 (1.001-1.035); Urine Urobilinogen < 2.0 EU/DL (0.2-1.0); WBC,Urine 1 /HPF (0-6)
[2018-01-25 10:48] LABS: Basophils # 0.1 10*3/uL (0.0-0.2); Eosinophils # 0.2 10*3/uL (0.0-0.87); Eosinophils % 1.1 % (0.00-10.9); Hematocrit 27.7 VOL% (35.7-47.0); Hemoglobin 9.2 GM/DL (12.0-16.0); Immature Granulocytes % 0.8 %; Immature Granulocytes Absolute 0.13 #; Lymphocytes # 0.5 10*3/uL (1.4-4.0); Lymphocytes % 3.3 % (21.3-54.2); Mean Corpuscular HGB Conc 33.2 GM/DL (32-36); Mean Corpuscular Hemoglobin 21 PG (27-34); Mean Corpuscular Volume 64.6 FL (87-102); Monocytes # 1.8 10*3/uL (0.11-0.8); NRBC # 0.05 10*3/uL; Neutrophils # 12.7 10*3/uL (1.4-7.4); Neutrophils % 83.1 % (38.7-73.9); Platelet Count 316 T/CUMM (130-400); Red Cell Distribution Width 22.6 % (9.3-17.3); White Blood Count 15.3 T/CUMM (4-12)
[2018-01-25 10:55] LABS: Eosinophils 1 % (0-10); Hypochromasia 1+; Lymphocytes 5 % (20-55); Platelet Estimate Adequate; Segmented Neutrophils 82 % (50-85); Total Cells Counted 100
[2018-01-25 10:56] LABS: Microcytosis Slight
[2018-01-25 10:57] LABS: Albumin 3.1 G/DL (3.4-5.0); Bilirubin,Total 0.6 MG/DL (0.2-1.0); Calcium 9.9 MG/DL (8.5-10.1); Osmolality,Calculated 283.7 MOS/KG (273-304); Potassium 2.8 MMOL/L (3.5-5.1); Total Protein 6.7 G/DL (6.4-8.3)
[2018-01-25] MEDS ORDERED: POTASSIUM CHLORIDE 20 MEQ TABLET PO STA (11:51)
[2018-01-25 12:05] LABS: Folate > 24.0 NG/ML (5.4-24.0); Vitamin B12 1007 PG/ML (211-911)
[2018-01-25 12:31] LABS: Ferritin 129.7 ng/ml (8-252)
[2018-01-25 12:54] LABS: % Iron Saturation 5.5 % (18-50)
[2018-01-25] MEDS ORDERED: GLUCAGON 1 MG VIAL IM PRN (12:55)
[2018-01-25] MEDS ORDERED: diphenhydrAMINE CAP 25 MG CAPSULE PO PRN (12:55)
[2018-01-25] MEDS ORDERED: ONDANSETRON 4 MG/2 ML VIAL IV PRN (12:55)
[2018-01-25] MEDS ORDERED: guaiFENesin/DM ER 600-30 MG TABLET PO PRN (12:55)
[2018-01-25] MEDS ORDERED: MORPHINE 4 MG/1 ML VIAL IV PRN (12:55)
[2018-01-25] MEDS ORDERED: DEXTROSE 50% 25 GM/50 ML VIAL IV PRN (12:55)
[2018-01-25] MEDS ORDERED: NON-FORMULARY MEDICATION (Potassium Chloride [Klor-Con 10] 10 MEQ) PO SCH (13:00)
[2018-01-25] MEDS ORDERED: FERROUS SULFATE 325 MG TABLET PO SCH (13:00)
[2018-01-25] MEDS ORDERED: POTASSIUM CHLORIDE 10 MEQ TABLET PO SCH (14:14)
[2018-01-25] MEDS ORDERED: INFLUENZA VIRUS VACCINE 0.5 ML SYRINGE IM ONE (14:57)
[2018-01-25] MEDS ORDERED: cloNIDine 0.2 MG/24 HR PATCH TRANSDERM SCH (15:00)
[2018-01-25] MEDS: AMIODARONE 200 MG TABLET PO SCH ×2 (15:30→21:47)
[2018-01-25] MEDS: LABETALOL 200 MG TABLET PO SCH ×2 (15:30→21:48)
[2018-01-25] MEDS: ASPIRIN EC 81 MG TABLET PO SCH (15:30)
[2018-01-25] MEDS: LOSARTAN/HCTZ 50-12.5 MG TABLET PO SCH (15:31)
[2018-01-25] MEDS: MEXILETINE 150 MG CAPSULE PO SCH ×2 (15:31→21:50)
[2018-01-25] MEDS: MAGNESIUM OXIDE 400 MG TABLET PO SCH (15:31)
[2018-01-25] MEDS: PANTOPRAZOLE 40 MG TABLET PO SCH (15:31)
[2018-01-25] MEDS: sitaGLIPtin 100 MG TABLET PO SCH (15:31)
[2018-01-25] MEDS: ERGOCALCIFEROL 50,000 UNIT CAPSULE PO SCH (15:31)
[2018-01-25] MEDS: ENOXAPARIN 30 MG/0.3 ML SYRINGE SUBCUT SCH (15:32)
[2018-01-25] MEDS: LOSARTAN 50 MG TABLET PO SCH (15:32)
[2018-01-25] MEDS: FUROSEMIDE 40 MG/4 ML VIAL IV SCH ×2 (15:32→21:47)
[2018-01-25] MEDS: FOLIC ACID 1 MG TABLET PO SCH (15:32)
[2018-01-25] MEDS: MINOXIDIL 2.5 MG TABLET PO SCH (15:34)
[2018-01-25] MEDS: INSULIN LISPRO 100 UNIT/ML SUBCUT SCH (16:53)
[2018-01-25] MEDS: POTASSIUM CHLORIDE 20 MEQ TABLET PO PRN ×2 (17:07→21:47)
[2018-01-25] MEDS ORDERED: MAGNESIUM SULF RIDER 4 GM in PREMIX 1 EACH IV PRN (17:43)
[2018-01-25] MEDS: MAGNESIUM SULF RIDER 2 GM in PREMIX 1 EACH IV PRN (18:12)
[2018-01-25] MEDS: MONTELUKAST 10 MG TABLET PO SCH (18:13)
[2018-01-25] MEDS: ATORVASTATIN 20 MG TABLET PO SCH (18:13)
[2018-01-25] MEDS: risperiDONE 0.5 MG TABLET PO SCH (21:47)
[2018-01-25] MEDS: LATANOPROST 0.005% OPH SOLN 2.5 ML BOTTLE BOTH EYES SCH (21:48)
[2018-01-26] MEDS: LABETALOL 200 MG TABLET PO SCH ×3 (00:35→21:00)
[2018-01-26] MEDS: FUROSEMIDE 40 MG/4 ML VIAL IV SCH ×3 (03:33→13:42)
[2018-01-26 06:11] LABS: Basophils # 0.1 10*3/uL (0.0-0.2); Basophils % 0.6 % (0.0-0.8); Eosinophils # 0.4 10*3/uL (0.0-0.87); Eosinophils % 3.8 % (0.00-10.9); Hematocrit 23.4 VOL% (35.7-47.0); Hemoglobin 7.5 GM/DL (12.0-16.0); Immature Granulocytes % 0.4 %; Immature Granulocytes Absolute 0.04 #; Lymphocytes % 10.2 % (21.3-54.2); Mean Corpuscular HGB Conc 32.1 GM/DL (32-36); Mean Corpuscular Hemoglobin 22 PG (27-34); Mean Corpuscular Volume 68.6 FL (87-102); Monocytes # 1.7 10*3/uL (0.11-0.8); Monocytes % 17.7 % (1.7-12.7); Neutrophils # 6.5 10*3/uL (1.4-7.4); Neutrophils % 67.3 % (38.7-73.9); Platelet Count 184 T/CUMM (130-400); Red Blood Count 3.41 MC/CUMM (3.8-5.5); Red Cell Distribution Width 22.4 % (9.3-17.3); White Blood Count 9.7 T/CUMM (4-12)
[2018-01-26] MEDS: MEXILETINE 150 MG CAPSULE PO SCH ×3 (06:31→21:00)
[2018-01-26] MEDS: DOCUSATE SODIUM 100 MG CAPSULE PO PRN ×2 (06:32→21:00)
[2018-01-26 06:43] LABS: Albumin 2.1 G/DL (3.4-5.0); Bilirubin,Total 0.5 MG/DL (0.2-1.0); Calcium 9.1 MG/DL (8.5-10.1); Osmolality,Calculated 280.7 MOS/KG (273-304); Potassium 3.5 MMOL/L (3.5-5.1); Risk Ratio 1.98; Thyroid Stimulating Hormone 0.176 uIU/ml (0.358-3.74); Total Protein 5.4 G/DL (6.4-8.3); VLDL CHOLESTEROL 10.4 MG/DL
[2018-01-26 07:50] LABS: Free T4 (Free Thyroxine) 1.58 NG/DL (0.76-1.46)
[2018-01-26 08:00] LABS: Eosinophils 7 % (0-10); Lymphocytes 17 % (20-55); Platelet Estimate Normal; Segmented Neutrophils 70 % (50-85); Total Cells Counted 100
[2018-01-26 08:01] LABS: Acanthocytes 2+; Anisocytosis 1+; Burr Cells Few; Microcytosis 3+; Schistocytes Few; Target Cells Few
[2018-01-26] MEDS: sitaGLIPtin 100 MG TABLET PO SCH (09:23)
[2018-01-26] MEDS: LOSARTAN/HCTZ 50-12.5 MG TABLET PO SCH (09:23)
[2018-01-26] MEDS: INSULIN LISPRO 100 UNIT/ML SUBCUT SCH ×3 (09:23→17:03)
[2018-01-26] MEDS: MINOXIDIL 2.5 MG TABLET PO SCH (09:24)
[2018-01-26] MEDS: MAGNESIUM OXIDE 400 MG TABLET PO SCH (09:24)
[2018-01-26] MEDS: FOLIC ACID 1 MG TABLET PO SCH (09:24)
[2018-01-26] MEDS: ASPIRIN EC 81 MG TABLET PO SCH (09:24)
[2018-01-26] MEDS: AMIODARONE 200 MG TABLET PO SCH ×2 (09:25→21:01)
[2018-01-26] MEDS: LOSARTAN 50 MG TABLET PO SCH (09:25)
[2018-01-26] MEDS: FERROUS SULFATE 325 MG TABLET PO SCH ×3 (09:25→21:00)
[2018-01-26] MEDS: PANTOPRAZOLE 40 MG TABLET PO SCH (09:25)
[2018-01-26] MEDS ORDERED: SODIUM CHLORIDE 0.9% 1,000 ML IV PRN (10:38)
[2018-01-26 11:45] LABS: Troponin I 0.025 NG/ML (0.00-0.045)
[2018-01-26] MEDS: ALBUMIN 5% 25 GM in PREMIX 1 EACH IV SCH ×2 (12:19→23:23)
[2018-01-26] MEDS: ENOXAPARIN 30 MG/0.3 ML SYRINGE SUBCUT SCH (14:47)
[2018-01-26] MEDS ORDERED: FUROSEMIDE 40 MG/4 ML VIAL IV ONE (16:00)
[2018-01-26] MEDS: POTASSIUM CHLORIDE 20 MEQ TABLET PO PRN ×2 (17:13→18:21)
[2018-01-26] MEDS: MONTELUKAST 10 MG TABLET PO SCH (18:21)
[2018-01-26] MEDS: ATORVASTATIN 20 MG TABLET PO SCH (18:21)
[2018-01-26] MEDS: risperiDONE 0.5 MG TABLET PO SCH (21:01)
[2018-01-26] MEDS: POTASSIUM CHLORIDE 20 MEQ TABLET PO SCH (21:01)
[2018-01-26] MEDS: LATANOPROST 0.005% OPH SOLN 2.5 ML BOTTLE BOTH EYES SCH (21:02)
[2018-01-27] MEDS: FUROSEMIDE 40 MG/4 ML VIAL IV SCH ×2 (01:50→13:02)
[2018-01-27 05:33] LABS: Basophils # 0.1 10*3/uL (0.0-0.2); Basophils % 0.5 % (0.0-0.8); Eosinophils # 0.7 10*3/uL (0.0-0.87); Eosinophils % 6.1 % (0.00-10.9); Hematocrit 28.2 VOL% (35.7-47.0); Hemoglobin 9.5 GM/DL (12.0-16.0); Immature Granulocytes % 0.6 %; Immature Granulocytes Absolute 0.07 #; Lymphocytes # 0.7 10*3/uL (1.4-4.0); Lymphocytes % 6.5 % (21.3-54.2); Mean Corpuscular HGB Conc 33.7 GM/DL (32-36); Mean Corpuscular Hemoglobin 23 PG (27-34); Mean Corpuscular Volume 67.1 FL (87-102); Monocytes # 1.8 10*3/uL (0.11-0.8); Monocytes % 16.3 % (1.7-12.7); Neutrophils # 7.7 10*3/uL (1.4-7.4); Platelet Count 293 T/CUMM (130-400); Red Cell Distribution Width 23.4 % (9.3-17.3); White Blood Count 11.1 T/CUMM (4-12)
[2018-01-27 05:47] LABS: Calcium 9.3 MG/DL (8.5-10.1); Osmolality,Calculated 282.8 MOS/KG (273-304); Potassium 3.6 MMOL/L (3.5-5.1)
[2018-01-27 05:52] LABS: Troponin I < 0.015 NG/ML (0.00-0.045)
[2018-01-27] MEDS: MEXILETINE 150 MG CAPSULE PO SCH ×3 (06:29→22:19)
[2018-01-27 07:55] LABS: Acanthocytes 1+; Eosinophils 6 % (0-10); Lymphocytes 7 % (20-55); Platelet Estimate Normal; Schistocytes Few; Segmented Neutrophils 84 % (50-85); Target Cells Few; Total Cells Counted 100
[2018-01-27] MEDS: INSULIN LISPRO 100 UNIT/ML SUBCUT SCH ×3 (09:01→16:41)
[2018-01-27] MEDS: POTASSIUM CHLORIDE 20 MEQ TABLET PO SCH ×2 (09:02→22:20)
[2018-01-27] MEDS: PANTOPRAZOLE 40 MG TABLET PO SCH (09:02)
[2018-01-27] MEDS: LOSARTAN/HCTZ 50-12.5 MG TABLET PO SCH (09:03)
[2018-01-27] MEDS: AMIODARONE 200 MG TABLET PO SCH ×2 (09:03→22:20)
[2018-01-27] MEDS: LOSARTAN 50 MG TABLET PO SCH (09:03)
[2018-01-27] MEDS: FERROUS SULFATE 325 MG TABLET PO SCH ×3 (09:03→22:20)
[2018-01-27] MEDS: FOLIC ACID 1 MG TABLET PO SCH (09:03)
[2018-01-27] MEDS: MAGNESIUM OXIDE 400 MG TABLET PO SCH (09:03)
[2018-01-27] MEDS: MINOXIDIL 2.5 MG TABLET PO SCH (09:03)
[2018-01-27] MEDS: LABETALOL 200 MG TABLET PO SCH ×2 (09:03→22:20)
[2018-01-27] MEDS: ASPIRIN EC 81 MG TABLET PO SCH (09:03)
[2018-01-27] MEDS: sitaGLIPtin 100 MG TABLET PO SCH (09:04)
[2018-01-27] MEDS: ALBUMIN 5% 25 GM in PREMIX 1 EACH IV SCH ×2 (13:01→23:08)
[2018-01-27] MEDS: metOLazone 5 MG TABLET PO SCH (13:02)
[2018-01-27] MEDS: ENOXAPARIN 30 MG/0.3 ML SYRINGE SUBCUT SCH (15:56)
[2018-01-27] MEDS: MONTELUKAST 10 MG TABLET PO SCH (18:06)
[2018-01-27] MEDS: ATORVASTATIN 20 MG TABLET PO SCH (18:06)
[2018-01-27] MEDS: risperiDONE 0.5 MG TABLET PO SCH (22:20)
[2018-01-27] MEDS: amLODIPine 5 MG TABLET PO SCH (22:20)
[2018-01-27] MEDS: LATANOPROST 0.005% OPH SOLN 2.5 ML BOTTLE BOTH EYES SCH (22:21)
[2018-01-28] MEDS: FUROSEMIDE 40 MG/4 ML VIAL IV SCH ×2 (01:10→08:51)
[2018-01-28] MEDS: MEXILETINE 150 MG CAPSULE PO SCH ×3 (05:38→21:37)
[2018-01-28 05:46] LABS: Basophils # 0.1 10*3/uL (0.0-0.2); Basophils % 0.5 % (0.0-0.8); Eosinophils # 0.7 10*3/uL (0.0-0.87); Eosinophils % 6.8 % (0.00-10.9); Hematocrit 26.7 VOL% (35.7-47.0); Immature Granulocytes % 0.6 %; Immature Granulocytes Absolute 0.06 #; Lymphocytes # 0.9 10*3/uL (1.4-4.0); Lymphocytes % 8.2 % (21.3-54.2); Mean Corpuscular HGB Conc 33.7 GM/DL (32-36); Mean Corpuscular Hemoglobin 23 PG (27-34); Mean Corpuscular Volume 67.4 FL (87-102); Monocytes # 1.8 10*3/uL (0.11-0.8); Neutrophils % 66.9 % (38.7-73.9); Platelet Count 286 T/CUMM (130-400); Red Blood Count 3.96 MC/CUMM (3.8-5.5); Red Cell Distribution Width 23.1 % (9.3-17.3); White Blood Count 10.4 T/CUMM (4-12)
[2018-01-28 06:04] LABS: Osmolality,Calculated 285.5 MOS/KG (273-304); Potassium 2.9 MMOL/L (3.5-5.1)
[2018-01-28 06:06] LABS: Albumin 3.6 G/DL (3.4-5.0); Bilirubin,Direct 0.22 MG/DL (0.0-0.20); Bilirubin,Indirect 0.8 MG/DL (0.0-1.0); Eosinophils 3 % (0-10); Hypochromasia 1+; Lymphocytes 7 % (20-55); Platelet Estimate Adequate; Segmented Neutrophils 69 % (50-85); Total Cells Counted 100; Total Protein 6.8 G/DL (6.4-8.3)
[2018-01-28 06:07] LABS: Burr Cells Slight; Microcytosis Slight
[2018-01-28] MEDS: POTASSIUM CHLORIDE 20 MEQ TABLET PO PRN ×3 (06:14→13:26)
[2018-01-28] MEDS: INSULIN LISPRO 100 UNIT/ML SUBCUT SCH ×3 (08:28→16:12)
[2018-01-28] MEDS: AMIODARONE 200 MG TABLET PO SCH ×2 (08:54→21:37)
[2018-01-28] MEDS: LABETALOL 200 MG TABLET PO SCH ×2 (08:54→21:37)
[2018-01-28] MEDS: POTASSIUM CHLORIDE 20 MEQ TABLET PO SCH ×4 (08:54→21:37)
[2018-01-28] MEDS: FERROUS SULFATE 325 MG TABLET PO SCH ×3 (08:54→21:37)
[2018-01-28] MEDS: PANTOPRAZOLE 40 MG TABLET PO SCH (08:54)
[2018-01-28] MEDS: amLODIPine 5 MG TABLET PO SCH ×2 (08:55→21:37)
[2018-01-28] MEDS: metOLazone 5 MG TABLET PO SCH (08:55)
[2018-01-28] MEDS: ASPIRIN EC 81 MG TABLET PO SCH (08:55)
[2018-01-28] MEDS: FOLIC ACID 1 MG TABLET PO SCH (08:55)
[2018-01-28] MEDS: sitaGLIPtin 100 MG TABLET PO SCH (08:55)
[2018-01-28] MEDS: MAGNESIUM OXIDE 400 MG TABLET PO SCH (08:55)
[2018-01-28] MEDS: MINOXIDIL 2.5 MG TABLET PO SCH (08:55)
[2018-01-28] MEDS: ALBUMIN 5% 25 GM in PREMIX 1 EACH IV SCH ×2 (08:58→21:31)
[2018-01-28] MEDS: ENOXAPARIN 30 MG/0.3 ML SYRINGE SUBCUT SCH (15:44)
[2018-01-28] MEDS: MONTELUKAST 10 MG TABLET PO SCH (18:03)
[2018-01-28] MEDS: ATORVASTATIN 20 MG TABLET PO SCH (18:03)
[2018-01-28] MEDS: risperiDONE 0.5 MG TABLET PO SCH (21:37)
[2018-01-28] MEDS: DOCUSATE SODIUM 100 MG CAPSULE PO PRN (21:37)
[2018-01-28] MEDS: LATANOPROST 0.005% OPH SOLN 2.5 ML BOTTLE BOTH EYES SCH (21:38)
[2018-01-29] MEDS: FUROSEMIDE 40 MG/4 ML VIAL IV SCH ×2 (00:15→07:30)
[2018-01-29] MEDS: MEXILETINE 150 MG CAPSULE PO SCH ×2 (06:29→13:38)
[2018-01-29] MEDS: ACETAMINOPHEN 325 MG TABLET PO PRN (06:29)
[2018-01-29 06:51] LABS: Basophils # 0.1 10*3/uL (0.0-0.2); Basophils % 0.8 % (0.0-0.8); Eosinophils # 0.7 10*3/uL (0.0-0.87); Eosinophils % 6.3 % (0.00-10.9); Hematocrit 27.5 VOL% (35.7-47.0); Hemoglobin 9.2 GM/DL (12.0-16.0); Immature Granulocytes % 0.7 %; Immature Granulocytes Absolute 0.07 #; Lymphocytes # 0.7 10*3/uL (1.4-4.0); Lymphocytes % 6.9 % (21.3-54.2); Mean Corpuscular HGB Conc 33.5 GM/DL (32-36); Mean Corpuscular Hemoglobin 23 PG (27-34); Mean Corpuscular Volume 68.8 FL (87-102); Monocytes # 1.9 10*3/uL (0.11-0.8); Monocytes % 17.4 % (1.7-12.7); Neutrophils # 7.2 10*3/uL (1.4-7.4); Neutrophils % 67.9 % (38.7-73.9); Platelet Count 247 T/CUMM (130-400); Red Cell Distribution Width 23.4 % (9.3-17.3); White Blood Count 10.7 T/CUMM (4-12)
[2018-01-29 07:08] LABS: Calcium 9.9 MG/DL (8.5-10.1); Osmolality,Calculated 285.4 MOS/KG (273-304); Potassium 3.1 MMOL/L (3.5-5.1)
[2018-01-29 07:10] LABS: Acanthocytes 1+; Eosinophils 3 % (0-10); Lymphocytes 16 % (20-55); Platelet Estimate Normal; Schistocytes Few; Segmented Neutrophils 69 % (50-85); Total Cells Counted 100
[2018-01-29 07:11] LABS: Target Cells Few
[2018-01-29] MEDS: MAGNESIUM SULF RIDER 2 GM in PREMIX 1 EACH IV PRN (07:30)
[2018-01-29] MEDS: INSULIN LISPRO 100 UNIT/ML SUBCUT SCH ×3 (08:18→16:18)
[2018-01-29] MEDS: ALBUMIN 5% 25 GM in PREMIX 1 EACH IV SCH (08:19)
[2018-01-29] MEDS: ASPIRIN EC 81 MG TABLET PO SCH (09:30)
[2018-01-29] MEDS: sitaGLIPtin 100 MG TABLET PO SCH (09:30)
[2018-01-29] MEDS: LABETALOL 200 MG TABLET PO SCH ×2 (09:30→21:53)
[2018-01-29] MEDS: MINOXIDIL 2.5 MG TABLET PO SCH ×2 (09:30→21:52)
[2018-01-29] MEDS: DOCUSATE SODIUM 100 MG CAPSULE PO PRN (09:31)
[2018-01-29] MEDS: AMIODARONE 200 MG TABLET PO SCH ×2 (09:31→21:53)
[2018-01-29] MEDS: amLODIPine 5 MG TABLET PO SCH ×2 (09:31→21:52)
[2018-01-29] MEDS: PANTOPRAZOLE 40 MG TABLET PO SCH (09:31)
[2018-01-29] MEDS: POTASSIUM CHLORIDE 20 MEQ TABLET PO SCH ×3 (09:31→21:53)
[2018-01-29] MEDS: FERROUS SULFATE 325 MG TABLET PO SCH ×3 (09:31→21:52)
[2018-01-29] MEDS: metOLazone 5 MG TABLET PO SCH (09:31)
[2018-01-29] MEDS: FOLIC ACID 1 MG TABLET PO SCH (09:31)
[2018-01-29] MEDS: MAGNESIUM OXIDE 400 MG TABLET PO SCH (09:31)
[2018-01-29] MEDS ORDERED: SPIRONOLACTONE 25 MG TABLET PO SCH (10:30)
[2018-01-29] MEDS ORDERED: FUROSEMIDE 20 MG/2 ML VIAL IV ONE (10:54)
[2018-01-29] MEDS: FUROSEMIDE 100 MG/10 ML VIAL IV SCH ×2 (10:55→21:53)
[2018-01-29] MEDS: POTASSIUM CHLORIDE 20 MEQ TABLET PO PRN ×3 (11:35→17:27)
[2018-01-29 12:46] LABS: Thyroglob. AB < 1.8 IU/mL (<4.0)
[2018-01-29] MEDS ORDERED: hydrALAZINE 20 MG/1 ML VIAL IV PRN (12:47)
[2018-01-29] MEDS: ENOXAPARIN 30 MG/0.3 ML SYRINGE SUBCUT SCH (15:29)
[2018-01-29] MEDS: ATORVASTATIN 20 MG TABLET PO SCH (18:11)
[2018-01-29] MEDS: MONTELUKAST 10 MG TABLET PO SCH (18:11)
[2018-01-29] MEDS: risperiDONE 0.5 MG TABLET PO SCH (21:57)
[2018-01-29] MEDS: LATANOPROST 0.005% OPH SOLN 2.5 ML BOTTLE BOTH EYES SCH (21:57)
[2018-01-30] MEDS: MEXILETINE 150 MG CAPSULE PO SCH ×4 (06:19→21:38)
[2018-01-30 06:50] LABS: Calcium 9.6 MG/DL (8.5-10.1)
[2018-01-30 06:51] LABS: Osmolality,Calculated 286.5 MOS/KG (273-304); Potassium 5.2 MMOL/L (3.5-5.1)
[2018-01-30 07:05] LABS: Basophils # 0.1 10*3/uL (0.0-0.2); Basophils % 0.7 % (0.0-0.8); Eosinophils # 0.8 10*3/uL (0.0-0.87); Eosinophils % 7.4 % (0.00-10.9); Hematocrit 27.4 VOL% (35.7-47.0); Hemoglobin 9.3 GM/DL (12.0-16.0); Immature Granulocytes % 0.5 %; Immature Granulocytes Absolute 0.05 #; Lymphocytes # 0.8 10*3/uL (1.4-4.0); Lymphocytes % 7.6 % (21.3-54.2); Mean Corpuscular HGB Conc 33.9 GM/DL (32-36); Mean Corpuscular Hemoglobin 23 PG (27-34); Mean Corpuscular Volume 68.5 FL (87-102); Mean Platelet Volume 10.3 FL (9.6-12.0); Monocytes # 1.5 10*3/uL (0.11-0.8); Neutrophils # 7.1 10*3/uL (1.4-7.4); Neutrophils % 68.8 % (38.7-73.9); Platelet Count 265 T/CUMM (130-400); Red Cell Distribution Width 23.9 % (9.3-17.3); White Blood Count 10.3 T/CUMM (4-12)
[2018-01-30 07:51] LABS: Anisocytosis 1+; Platelet Estimate Normal; Target Cells 1+
[2018-01-30 07:52] LABS: Hypochromasia 1+; Poikilocytosis 2+
[2018-01-30] MEDS ORDERED: SPIRONOLACTONE 25 MG TABLET PO SCH (09:00)
[2018-01-30] MEDS: MINOXIDIL 2.5 MG TABLET PO SCH ×2 (09:24→21:30)
[2018-01-30] MEDS: FUROSEMIDE 100 MG/10 ML VIAL IV SCH ×2 (09:24→21:31)
[2018-01-30] MEDS: AMIODARONE 200 MG TABLET PO SCH ×2 (09:25→21:30)
[2018-01-30] MEDS: metOLazone 5 MG TABLET PO SCH (09:25)
[2018-01-30] MEDS: MAGNESIUM OXIDE 400 MG TABLET PO SCH (09:25)
[2018-01-30] MEDS: sitaGLIPtin 100 MG TABLET PO SCH (09:25)
[2018-01-30] MEDS: LABETALOL 200 MG TABLET PO SCH ×2 (09:25→21:31)
[2018-01-30] MEDS: FERROUS SULFATE 325 MG TABLET PO SCH ×3 (09:26→21:31)
[2018-01-30] MEDS: ASPIRIN EC 81 MG TABLET PO SCH (09:26)
[2018-01-30] MEDS: FOLIC ACID 1 MG TABLET PO SCH (09:26)
[2018-01-30] MEDS: PANTOPRAZOLE 40 MG TABLET PO SCH (09:26)
[2018-01-30] MEDS: amLODIPine 5 MG TABLET PO SCH ×2 (09:26→21:30)
[2018-01-30] MEDS: INSULIN LISPRO 100 UNIT/ML SUBCUT SCH ×3 (09:27→16:20)
[2018-01-30] MEDS: ENOXAPARIN 30 MG/0.3 ML SYRINGE SUBCUT SCH (14:47)
[2018-01-30] MEDS: ATORVASTATIN 20 MG TABLET PO SCH (18:22)
[2018-01-30] MEDS: MONTELUKAST 10 MG TABLET PO SCH (18:22)
[2018-01-30] MEDS: risperiDONE 0.5 MG TABLET PO SCH (21:30)
[2018-01-30] MEDS: LATANOPROST 0.005% OPH SOLN 2.5 ML BOTTLE BOTH EYES SCH (21:31)
[2018-01-30] MEDS: traMADol 50 MG TABLET PO PRN (22:25)
[2018-01-31] MEDS: ACETAMINOPHEN 325 MG TABLET PO PRN (01:28)
[2018-01-31 06:21] LABS: Basophils # 0.1 10*3/uL (0.0-0.2); Basophils % 0.6 % (0.0-0.8); Eosinophils # 0.8 10*3/uL (0.0-0.87); Eosinophils % 8.1 % (0.00-10.9); Hematocrit 26.5 VOL% (35.7-47.0); Hemoglobin 8.5 GM/DL (12.0-16.0); Immature Granulocytes % 0.5 %; Immature Granulocytes Absolute 0.05 #; Lymphocytes # 0.8 10*3/uL (1.4-4.0); Lymphocytes % 8.2 % (21.3-54.2); Mean Corpuscular HGB Conc 32.1 GM/DL (32-36); Mean Corpuscular Hemoglobin 22 PG (27-34); Mean Corpuscular Volume 68.7 FL (87-102); Monocytes # 1.5 10*3/uL (0.11-0.8); Monocytes % 14.8 % (1.7-12.7); Neutrophils # 6.9 10*3/uL (1.4-7.4); Neutrophils % 67.8 % (38.7-73.9); Platelet Count 245 T/CUMM (130-400); Red Blood Count 3.86 MC/CUMM (3.8-5.5); Red Cell Distribution Width 24.3 % (9.3-17.3); White Blood Count 10.1 T/CUMM (4-12)
[2018-01-31] MEDS: MEXILETINE 150 MG CAPSULE PO SCH ×3 (06:25→21:17)
[2018-01-31 06:45] LABS: Hypochromasia 1+; Platelet Estimate Adequate
[2018-01-31 06:46] LABS: Acanthocytes Few
[2018-01-31 06:50] LABS: Calcium 9.5 MG/DL (8.5-10.1); Osmolality,Calculated 286.8 MOS/KG (273-304)
[2018-01-31] MEDS: INSULIN LISPRO 100 UNIT/ML SUBCUT SCH ×3 (09:46→16:06)
[2018-01-31] MEDS: MINOXIDIL 2.5 MG TABLET PO SCH ×2 (09:47→21:17)
[2018-01-31] MEDS: FOLIC ACID 1 MG TABLET PO SCH (09:47)
[2018-01-31] MEDS: amLODIPine 5 MG TABLET PO SCH ×2 (09:47→21:17)
[2018-01-31] MEDS: LABETALOL 200 MG TABLET PO SCH ×2 (09:47→21:17)
[2018-01-31] MEDS: ASPIRIN EC 81 MG TABLET PO SCH (09:47)
[2018-01-31] MEDS: metOLazone 5 MG TABLET PO SCH (09:47)
[2018-01-31] MEDS: PANTOPRAZOLE 40 MG TABLET PO SCH (09:47)
[2018-01-31] MEDS: sitaGLIPtin 100 MG TABLET PO SCH (09:48)
[2018-01-31] MEDS: FUROSEMIDE 100 MG/10 ML VIAL IV SCH ×2 (09:48→21:20)
[2018-01-31] MEDS: MAGNESIUM OXIDE 400 MG TABLET PO SCH (09:48)
[2018-01-31] MEDS: AMIODARONE 200 MG TABLET PO SCH ×2 (09:48→21:17)
[2018-01-31] MEDS: FERROUS SULFATE 325 MG TABLET PO SCH ×3 (09:48→21:17)
[2018-01-31] MEDS: ENOXAPARIN 30 MG/0.3 ML SYRINGE SUBCUT SCH (14:41)
[2018-01-31] MEDS: ATORVASTATIN 20 MG TABLET PO SCH (18:03)
[2018-01-31] MEDS: MONTELUKAST 10 MG TABLET PO SCH (18:03)
[2018-01-31] MEDS: risperiDONE 0.5 MG TABLET PO SCH (21:17)
[2018-01-31] MEDS: LATANOPROST 0.005% OPH SOLN 2.5 ML BOTTLE BOTH EYES SCH (21:20)
[2018-02-01 04:42] LABS: Basophils # 0.1 10*3/uL (0.0-0.2); Basophils % 0.9 % (0.0-0.8); Eosinophils % 8.5 % (0.00-10.9); Hematocrit 26.6 VOL% (35.7-47.0); Hemoglobin 8.9 GM/DL (12.0-16.0); Immature Granulocytes % 0.6 %; Immature Granulocytes Absolute 0.07 #; Lymphocytes # 0.9 10*3/uL (1.4-4.0); Lymphocytes % 7.9 % (21.3-54.2); Mean Corpuscular HGB Conc 33.5 GM/DL (32-36); Mean Corpuscular Hemoglobin 23 PG (27-34); Monocytes # 1.7 10*3/uL (0.11-0.8); Monocytes % 14.6 % (1.7-12.7); Neutrophils # 7.7 10*3/uL (1.4-7.4); Neutrophils % 67.5 % (38.7-73.9); Platelet Count 268 T/CUMM (130-400); Red Blood Count 3.91 MC/CUMM (3.8-5.5); Red Cell Distribution Width 23.9 % (9.3-17.3); White Blood Count 11.4 T/CUMM (4-12)
[2018-02-01 04:59] LABS: Mean Platelet Volume 10.5 FL (9.6-12.0)
[2018-02-01 05:05] LABS: Calcium 9.9 MG/DL (8.5-10.1); Osmolality,Calculated 288.8 MOS/KG (273-304); Potassium 4.7 MMOL/L (3.5-5.1)
[2018-02-01 05:07] LABS: Anisocytosis 2+; Platelet Estimate Normal; Poikilocytosis 2+
[2018-02-01 05:08] LABS: Hypochromasia 2+; Target Cells 1+
[2018-02-01] MEDS: MEXILETINE 150 MG CAPSULE PO SCH ×3 (06:15→22:05)
[2018-02-01] MEDS: INSULIN LISPRO 100 UNIT/ML SUBCUT SCH ×3 (08:20→16:36)
[2018-02-01] MEDS: FUROSEMIDE 100 MG/10 ML VIAL IV SCH ×2 (09:00→22:05)
[2018-02-01] MEDS: MINOXIDIL 2.5 MG TABLET PO SCH ×2 (09:02→22:05)
[2018-02-01] MEDS: sitaGLIPtin 100 MG TABLET PO SCH (09:02)
[2018-02-01] MEDS: ASPIRIN EC 81 MG TABLET PO SCH (09:02)
[2018-02-01] MEDS: LABETALOL 200 MG TABLET PO SCH ×2 (09:02→22:06)
[2018-02-01] MEDS: MAGNESIUM OXIDE 400 MG TABLET PO SCH (09:02)
[2018-02-01] MEDS: PANTOPRAZOLE 40 MG TABLET PO SCH (09:02)
[2018-02-01] MEDS: FOLIC ACID 1 MG TABLET PO SCH (09:02)
[2018-02-01] MEDS: amLODIPine 5 MG TABLET PO SCH ×2 (09:02→22:06)
[2018-02-01] MEDS: AMIODARONE 200 MG TABLET PO SCH ×2 (09:02→22:06)
[2018-02-01] MEDS: metOLazone 5 MG TABLET PO SCH (09:02)
[2018-02-01] MEDS: FERROUS SULFATE 325 MG TABLET PO SCH ×3 (09:02→22:06)
[2018-02-01] MEDS: ALBUMIN 25% 25 GM in PREMIX 1 EACH IV SCH ×2 (12:05→22:05)
[2018-02-01] MEDS: ERGOCALCIFEROL 50,000 UNIT CAPSULE PO SCH (14:51)
[2018-02-01] MEDS: ENOXAPARIN 30 MG/0.3 ML SYRINGE SUBCUT SCH (14:52)
[2018-02-01] MEDS: ATORVASTATIN 20 MG TABLET PO SCH (18:06)
[2018-02-01] MEDS: MONTELUKAST 10 MG TABLET PO SCH (18:06)
[2018-02-01] MEDS: risperiDONE 0.5 MG TABLET PO SCH (22:05)
[2018-02-01] MEDS: LATANOPROST 0.005% OPH SOLN 2.5 ML BOTTLE BOTH EYES SCH (22:06)
[2018-02-02 03:37] LABS: Basophils # 0.1 10*3/uL (0.0-0.2); Basophils % 0.7 % (0.0-0.8); Eosinophils # 0.9 10*3/uL (0.0-0.87); Eosinophils % 8.9 % (0.00-10.9); Hematocrit 25.9 VOL% (35.7-47.0); Hemoglobin 8.7 GM/DL (12.0-16.0); Immature Granulocytes % 0.4 %; Immature Granulocytes Absolute 0.04 #; Lymphocytes # 0.7 10*3/uL (1.4-4.0); Lymphocytes % 7.4 % (21.3-54.2); Mean Corpuscular HGB Conc 33.6 GM/DL (32-36); Mean Corpuscular Hemoglobin 23 PG (27-34); Mean Corpuscular Volume 67.3 FL (87-102); Monocytes # 1.6 10*3/uL (0.11-0.8); Monocytes % 16.1 % (1.7-12.7); Neutrophils # 6.4 10*3/uL (1.4-7.4); Neutrophils % 66.5 % (38.7-73.9); Platelet Count 272 T/CUMM (130-400); Red Blood Count 3.85 MC/CUMM (3.8-5.5); Red Cell Distribution Width 23.9 % (9.3-17.3); White Blood Count 9.6 T/CUMM (4-12)
[2018-02-02 04:01] LABS: Eosinophils 9 % (0-10); Lymphocytes 12 % (20-55); Segmented Neutrophils 69 % (50-85)
[2018-02-02 04:03] LABS: Calcium 9.8 MG/DL (8.5-10.1); Hypochromasia 1+; Platelet Estimate Normal; Potassium 3.6 MMOL/L (3.5-5.1); Schistocytes 1+; Target Cells 2+
[2018-02-02 04:04] LABS: Anisocytosis 1+; Microcytosis 1+; Poikilocytosis 2+
[2018-02-02 04:05] LABS: Ovalocytes 1+; Total Cells Counted 100
[2018-02-02 04:06] LABS: Acanthocytes 1+
[2018-02-02] MEDS: MEXILETINE 150 MG CAPSULE PO SCH ×3 (06:44→21:04)
[2018-02-02] MEDS: metOLazone 5 MG TABLET PO SCH (09:30)
[2018-02-02] MEDS: MINOXIDIL 2.5 MG TABLET PO SCH ×2 (09:30→20:57)
[2018-02-02] MEDS: PANTOPRAZOLE 40 MG TABLET PO SCH (09:30)
[2018-02-02] MEDS: FOLIC ACID 1 MG TABLET PO SCH (09:30)
[2018-02-02] MEDS: FERROUS SULFATE 325 MG TABLET PO SCH ×3 (09:30→20:55)
[2018-02-02] MEDS: MAGNESIUM OXIDE 400 MG TABLET PO SCH (09:30)
[2018-02-02] MEDS: AMIODARONE 200 MG TABLET PO SCH ×2 (09:30→20:56)
[2018-02-02] MEDS: POTASSIUM CHLORIDE 20 MEQ TABLET PO PRN (09:31)
[2018-02-02] MEDS: ALBUMIN 25% 25 GM in PREMIX 1 EACH IV SCH ×3 (09:31→20:55)
[2018-02-02] MEDS: ASPIRIN EC 81 MG TABLET PO SCH (09:31)
[2018-02-02] MEDS: amLODIPine 5 MG TABLET PO SCH ×2 (09:31→20:55)
[2018-02-02] MEDS: FUROSEMIDE 100 MG/10 ML VIAL IV SCH ×3 (09:31→18:56)
[2018-02-02] MEDS: LABETALOL 200 MG TABLET PO SCH ×2 (09:31→20:56)
[2018-02-02] MEDS: sitaGLIPtin 100 MG TABLET PO SCH (09:31)
[2018-02-02] MEDS: INSULIN LISPRO 100 UNIT/ML SUBCUT SCH ×3 (09:32→17:35)
[2018-02-02] MEDS ORDERED: ENOXAPARIN 80 MG/0.8 ML SYRINGE SUBCUT SCH (14:00)
[2018-02-02] MEDS: WARFARIN 7.5 MG TABLET PO SCH (18:12)
[2018-02-02] MEDS: ATORVASTATIN 20 MG TABLET PO SCH (18:12)
[2018-02-02] MEDS: MONTELUKAST 10 MG TABLET PO SCH (18:12)
[2018-02-02] MEDS: risperiDONE 0.5 MG TABLET PO SCH (20:56)
[2018-02-02] MEDS ORDERED: FUROSEMIDE 100 MG/10 ML VIAL IV SCH (21:00)
[2018-02-02] MEDS: LATANOPROST 0.005% OPH SOLN 2.5 ML BOTTLE BOTH EYES SCH (21:04)
[2018-02-03] MEDS: FUROSEMIDE 100 MG/10 ML VIAL IV SCH ×2 (02:03→12:19)
[2018-02-03 03:52] LABS: Basophils # 0.1 10*3/uL (0.0-0.2); Basophils % 0.9 % (0.0-0.8); Eosinophils # 0.8 10*3/uL (0.0-0.87); Eosinophils % 8.9 % (0.00-10.9); Hematocrit 25.9 VOL% (35.7-47.0); Hemoglobin 8.7 GM/DL (12.0-16.0); Immature Granulocytes % 0.5 %; Immature Granulocytes Absolute 0.04 #; Lymphocytes # 0.9 10*3/uL (1.4-4.0); Lymphocytes % 9.7 % (21.3-54.2); Mean Corpuscular HGB Conc 33.6 GM/DL (32-36); Mean Corpuscular Hemoglobin 23 PG (27-34); Mean Corpuscular Volume 66.9 FL (87-102); Monocytes # 1.4 10*3/uL (0.11-0.8); Monocytes % 15.9 % (1.7-12.7); Neutrophils # 5.6 10*3/uL (1.4-7.4); Neutrophils % 64.1 % (38.7-73.9); Platelet Count 306 T/CUMM (130-400); Red Blood Count 3.87 MC/CUMM (3.8-5.5); Red Cell Distribution Width 23.6 % (9.3-17.3); White Blood Count 8.7 T/CUMM (4-12)
[2018-02-03 04:16] LABS: Osmolality,Calculated 289.8 MOS/KG (273-304)
[2018-02-03 04:27] LABS: Eosinophils 9 % (0-10); Helmet Cells Few; Hypochromasia 1+; Lymphocytes 11 % (20-55); Microcytosis 1+; Platelet Estimate Normal; Polychromasia Few; Segmented Neutrophils 69 % (50-85); Target Cells 1+; Total Cells Counted 100
[2018-02-03] MEDS: POTASSIUM CHLORIDE 20 MEQ TABLET PO PRN ×4 (04:35→12:19)
[2018-02-03] MEDS: MAGNESIUM SULF RIDER 2 GM in PREMIX 1 EACH IV PRN (06:18)
[2018-02-03] MEDS: MEXILETINE 150 MG CAPSULE PO SCH ×3 (06:19→21:13)
[2018-02-03] MEDS: INSULIN LISPRO 100 UNIT/ML SUBCUT SCH ×3 (08:31→16:26)
[2018-02-03] MEDS: ENOXAPARIN 80 MG/0.8 ML SYRINGE SUBCUT SCH (09:34)
[2018-02-03] MEDS: sitaGLIPtin 100 MG TABLET PO SCH (09:36)
[2018-02-03] MEDS: AMIODARONE 200 MG TABLET PO SCH ×2 (09:36→20:36)
[2018-02-03] MEDS: ASPIRIN EC 81 MG TABLET PO SCH (09:36)
[2018-02-03] MEDS: PANTOPRAZOLE 40 MG TABLET PO SCH (09:36)
[2018-02-03] MEDS: metOLazone 5 MG TABLET PO SCH (09:36)
[2018-02-03] MEDS: FOLIC ACID 1 MG TABLET PO SCH (09:36)
[2018-02-03] MEDS: amLODIPine 5 MG TABLET PO SCH ×2 (09:36→20:36)
[2018-02-03] MEDS: MAGNESIUM OXIDE 400 MG TABLET PO SCH (09:36)
[2018-02-03] MEDS: LABETALOL 200 MG TABLET PO SCH ×2 (09:36→20:36)
[2018-02-03] MEDS: FERROUS SULFATE 325 MG TABLET PO SCH ×3 (09:36→20:36)
[2018-02-03] MEDS: MINOXIDIL 2.5 MG TABLET PO SCH ×2 (09:37→20:37)
[2018-02-03] MEDS: ALBUMIN 25% 25 GM in PREMIX 1 EACH IV SCH ×2 (09:39→20:47)
[2018-02-03] MEDS: POTASSIUM CHLORIDE 20 MEQ TABLET PO SCH (12:25)
[2018-02-03] MEDS: WARFARIN 7.5 MG TABLET PO SCH ×2 (16:41→17:43)
[2018-02-03] MEDS: DOCUSATE SODIUM 100 MG CAPSULE PO PRN (16:42)
[2018-02-03] MEDS: LATANOPROST 0.005% OPH SOLN 2.5 ML BOTTLE BOTH EYES SCH (20:35)
[2018-02-03] MEDS: MONTELUKAST 10 MG TABLET PO SCH (20:37)
[2018-02-03] MEDS: ATORVASTATIN 20 MG TABLET PO SCH (20:37)
[2018-02-03] MEDS: risperiDONE 0.5 MG TABLET PO SCH (20:37)
[2018-02-04] MEDS: FUROSEMIDE 100 MG/10 ML VIAL IV SCH ×2 (00:07→13:15)
[2018-02-04 03:46] LABS: Basophils # 0.1 10*3/uL (0.0-0.2); Basophils % 0.7 % (0.0-0.8); Eosinophils # 0.8 10*3/uL (0.0-0.87); Eosinophils % 8.6 % (0.00-10.9); Hemoglobin 8.7 GM/DL (12.0-16.0); Immature Granulocytes % 0.5 %; Immature Granulocytes Absolute 0.05 #; Lymphocytes # 0.9 10*3/uL (1.4-4.0); Lymphocytes % 9.2 % (21.3-54.2); Mean Corpuscular HGB Conc 32.2 GM/DL (32-36); Mean Corpuscular Hemoglobin 23 PG (27-34); Mean Corpuscular Volume 69.8 FL (87-102); Mean Platelet Volume 10.1 FL (9.6-12.0); Monocytes # 1.6 10*3/uL (0.11-0.8); Monocytes % 16.6 % (1.7-12.7); Neutrophils # 6.1 10*3/uL (1.4-7.4); Neutrophils % 64.4 % (38.7-73.9); Platelet Count 292 T/CUMM (130-400); Red Blood Count 3.87 MC/CUMM (3.8-5.5); White Blood Count 9.5 T/CUMM (4-12)
[2018-02-04 04:03] LABS: Calcium 10.2 MG/DL (8.5-10.1); Osmolality,Calculated 293.5 MOS/KG (273-304); Potassium 2.8 MMOL/L (3.5-5.1)
[2018-02-04 04:05] LABS: INR 1.1
[2018-02-04 04:20] LABS: Acanthocytes 2+; Anisocytosis 2+; Band Neutrophils 3 % (0-10); Eosinophils 7 % (0-10); Giant Platelets Few; Lymphocytes 10 % (20-55); Macrocytosis 2+; Microcytosis 1+; Ovalocytes 1+; Platelet Estimate Normal; Segmented Neutrophils 66 % (50-85); Total Cells Counted 100
[2018-02-04] MEDS: MEXILETINE 150 MG CAPSULE PO SCH ×3 (05:25→22:08)
[2018-02-04] MEDS: POTASSIUM CHLORIDE 20 MEQ TABLET PO PRN (05:25)
[2018-02-04] MEDS ORDERED: POTASSIUM CHLORIDE 20 MEQ TABLET PO ONE ×2 (07:28→11:30)
[2018-02-04] MEDS ORDERED: MINOXIDIL 2.5 MG TABLET PO SCH (07:29)
[2018-02-04] MEDS: MAGNESIUM OXIDE 400 MG TABLET PO SCH (09:20)
[2018-02-04] MEDS: PANTOPRAZOLE 40 MG TABLET PO SCH (09:21)
[2018-02-04] MEDS: amLODIPine 5 MG TABLET PO SCH ×2 (09:21→22:07)
[2018-02-04] MEDS: MINOXIDIL 2.5 MG TABLET PO SCH ×2 (09:21→22:10)
[2018-02-04] MEDS: POTASSIUM CHLORIDE 20 MEQ TABLET PO SCH (09:21)
[2018-02-04] MEDS: FERROUS SULFATE 325 MG TABLET PO SCH ×3 (09:22→22:06)
[2018-02-04] MEDS: AMIODARONE 200 MG TABLET PO SCH ×2 (09:22→22:07)
[2018-02-04] MEDS: sitaGLIPtin 100 MG TABLET PO SCH (09:22)
[2018-02-04] MEDS: FOLIC ACID 1 MG TABLET PO SCH (09:22)
[2018-02-04] MEDS: LABETALOL 200 MG TABLET PO SCH ×2 (09:22→22:07)
[2018-02-04] MEDS: ASPIRIN EC 81 MG TABLET PO SCH (09:22)
[2018-02-04] MEDS: INSULIN LISPRO 100 UNIT/ML SUBCUT SCH ×3 (09:23→16:13)
[2018-02-04] MEDS: ENOXAPARIN 80 MG/0.8 ML SYRINGE SUBCUT SCH (09:23)
[2018-02-04] MEDS: ALBUMIN 25% 25 GM in PREMIX 1 EACH IV SCH ×2 (09:24→22:07)
[2018-02-04] MEDS: metOLazone 5 MG TABLET PO SCH (09:27)
[2018-02-04] MEDS ORDERED: MAGNESIUM CITRATE 300 ML BOTTLE PO ONE (15:56)
[2018-02-04] MEDS: WARFARIN 7.5 MG TABLET PO SCH (18:01)
[2018-02-04] MEDS: DOCUSATE SODIUM 100 MG CAPSULE PO PRN (22:06)
[2018-02-04] MEDS: MONTELUKAST 10 MG TABLET PO SCH (22:07)
[2018-02-04] MEDS: ATORVASTATIN 20 MG TABLET PO SCH (22:07)
[2018-02-04] MEDS: risperiDONE 0.5 MG TABLET PO SCH (22:08)
[2018-02-04] MEDS: LATANOPROST 0.005% OPH SOLN 2.5 ML BOTTLE BOTH EYES SCH (22:11)
[2018-02-04] MEDS ORDERED: BISACODYL 10 MG SUPP RECTAL ONE (23:30)
[2018-02-05] MEDS: FUROSEMIDE 100 MG/10 ML VIAL IV SCH ×2 (01:33→12:43)
[2018-02-05 03:52] LABS: Basophils # 0.1 10*3/uL (0.0-0.2); Basophils % 0.5 % (0.0-0.8); Eosinophils # 0.7 10*3/uL (0.0-0.87); Eosinophils % 6.2 % (0.00-10.9); Hematocrit 26.5 VOL% (35.7-47.0); Hemoglobin 8.7 GM/DL (12.0-16.0); Immature Granulocytes % 0.4 %; Immature Granulocytes Absolute 0.05 #; Lymphocytes # 0.9 10*3/uL (1.4-4.0); Lymphocytes % 7.7 % (21.3-54.2); Mean Corpuscular HGB Conc 32.8 GM/DL (32-36); Mean Corpuscular Hemoglobin 22 PG (27-34); Mean Corpuscular Volume 67.6 FL (87-102); Mean Platelet Volume 10.9 FL (9.6-12.0); Monocytes # 1.4 10*3/uL (0.11-0.8); Neutrophils # 8.3 10*3/uL (1.4-7.4); Neutrophils % 73.2 % (38.7-73.9); Platelet Count 282 T/CUMM (130-400); Red Blood Count 3.92 MC/CUMM (3.8-5.5); Red Cell Distribution Width 23.5 % (9.3-17.3); White Blood Count 11.3 T/CUMM (4-12)
[2018-02-05 04:20] LABS: Calcium 10.9 MG/DL (8.5-10.1); Osmolality,Calculated 294.5 MOS/KG (273-304); Potassium 3.8 MMOL/L (3.5-5.1)
[2018-02-05 04:30] LABS: Hypochromasia 1+; Ovalocytes Slight; Platelet Estimate Adequate
[2018-02-05 04:31] LABS: Acanthocytes Few; Microcytosis 1+
[2018-02-05] MEDS: MEXILETINE 150 MG CAPSULE PO SCH ×3 (06:16→21:18)
[2018-02-05] MEDS: sitaGLIPtin 100 MG TABLET PO SCH (08:34)
[2018-02-05] MEDS: PANTOPRAZOLE 40 MG TABLET PO SCH (08:34)
[2018-02-05] MEDS: MAGNESIUM OXIDE 400 MG TABLET PO SCH (08:34)
[2018-02-05] MEDS: FERROUS SULFATE 325 MG TABLET PO SCH ×3 (08:34→21:17)
[2018-02-05] MEDS: AMIODARONE 200 MG TABLET PO SCH ×2 (08:35→21:17)
[2018-02-05] MEDS: amLODIPine 5 MG TABLET PO SCH ×2 (08:35→21:17)
[2018-02-05] MEDS: FOLIC ACID 1 MG TABLET PO SCH (08:35)
[2018-02-05] MEDS: LABETALOL 200 MG TABLET PO SCH ×2 (08:35→21:18)
[2018-02-05] MEDS: ASPIRIN EC 81 MG TABLET PO SCH (08:35)
[2018-02-05] MEDS: POTASSIUM CHLORIDE 20 MEQ TABLET PO SCH (08:35)
[2018-02-05] MEDS: metOLazone 5 MG TABLET PO SCH (08:35)
[2018-02-05] MEDS: MINOXIDIL 2.5 MG TABLET PO SCH ×2 (08:35→21:17)
[2018-02-05] MEDS: ENOXAPARIN 80 MG/0.8 ML SYRINGE SUBCUT SCH (08:36)
[2018-02-05] MEDS: INSULIN LISPRO 100 UNIT/ML SUBCUT SCH ×3 (08:40→16:36)
[2018-02-05] MEDS: ALBUMIN 25% 25 GM in PREMIX 1 EACH IV SCH ×3 (08:40→21:57)
[2018-02-05] MEDS: POLYETHYLENE GLYCOL POWDER 17 GM PACK PO SCH (12:43)
[2018-02-05] MEDS ORDERED: SODIUM PHOSPHATE ENEMA 133 ML BOTTLE RECTAL PRN (13:02)
[2018-02-05] MEDS: WARFARIN 7.5 MG TABLET PO SCH (17:01)
[2018-02-05] MEDS: risperiDONE 0.5 MG TABLET PO SCH (21:17)
[2018-02-05] MEDS: ATORVASTATIN 20 MG TABLET PO SCH (21:17)
[2018-02-05] MEDS: MONTELUKAST 10 MG TABLET PO SCH (21:17)
[2018-02-05] MEDS: LATANOPROST 0.005% OPH SOLN 2.5 ML BOTTLE BOTH EYES SCH (21:58)
[2018-02-06] MEDS: FUROSEMIDE 100 MG/10 ML VIAL IV SCH ×2 (00:17→13:48)
[2018-02-06 04:46] LABS: Basophils % 0.4 % (0.0-0.8); Eosinophils # 0.4 10*3/uL (0.0-0.87); Eosinophils % 3.8 % (0.00-10.9); Hematocrit 26.1 VOL% (35.7-47.0); Hemoglobin 8.7 GM/DL (12.0-16.0); Immature Granulocytes % 0.3 %; Immature Granulocytes Absolute 0.03 #; Lymphocytes # 0.7 10*3/uL (1.4-4.0); Lymphocytes % 7.3 % (21.3-54.2); Mean Corpuscular HGB Conc 33.3 GM/DL (32-36); Mean Corpuscular Hemoglobin 23 PG (27-34); Mean Corpuscular Volume 68.1 FL (87-102); Mean Platelet Volume 10.2 FL (9.6-12.0); Monocytes # 1.2 10*3/uL (0.11-0.8); Monocytes % 12.6 % (1.7-12.7); Neutrophils # 6.9 10*3/uL (1.4-7.4); Neutrophils % 75.6 % (38.7-73.9); Platelet Count 332 T/CUMM (130-400); Red Blood Count 3.83 MC/CUMM (3.8-5.5); White Blood Count 9.1 T/CUMM (4-12)
[2018-02-06] MEDS: MEXILETINE 150 MG CAPSULE PO SCH ×3 (05:01→22:04)
[2018-02-06 05:16] LABS: Calcium 10.7 MG/DL (8.5-10.1); Potassium 4.4 MMOL/L (3.5-5.1)
[2018-02-06 05:28] LABS: Hypochromasia 1+
[2018-02-06 05:29] LABS: Microcytosis 1+; Ovalocytes Slight; Platelet Estimate Adequate
[2018-02-06] MEDS: ASPIRIN EC 81 MG TABLET PO SCH (09:52)
[2018-02-06] MEDS: FOLIC ACID 1 MG TABLET PO SCH (09:52)
[2018-02-06] MEDS: metOLazone 5 MG TABLET PO SCH (09:52)
[2018-02-06] MEDS: LABETALOL 200 MG TABLET PO SCH ×2 (09:53→22:02)
[2018-02-06] MEDS: FERROUS SULFATE 325 MG TABLET PO SCH ×3 (09:53→22:03)
[2018-02-06] MEDS: POTASSIUM CHLORIDE 20 MEQ TABLET PO SCH (09:53)
[2018-02-06] MEDS: AMIODARONE 200 MG TABLET PO SCH ×2 (09:53→22:04)
[2018-02-06] MEDS: amLODIPine 5 MG TABLET PO SCH ×2 (09:54→22:04)
[2018-02-06] MEDS: PANTOPRAZOLE 40 MG TABLET PO SCH (09:54)
[2018-02-06] MEDS: ENOXAPARIN 80 MG/0.8 ML SYRINGE SUBCUT SCH (09:55)
[2018-02-06] MEDS: MINOXIDIL 2.5 MG TABLET PO SCH ×2 (09:55→22:02)
[2018-02-06] MEDS: MAGNESIUM OXIDE 400 MG TABLET PO SCH (09:55)
[2018-02-06] MEDS: INSULIN LISPRO 100 UNIT/ML SUBCUT SCH ×3 (09:56→16:09)
[2018-02-06] MEDS: POLYETHYLENE GLYCOL POWDER 17 GM PACK PO SCH (09:57)
[2018-02-06] MEDS: sitaGLIPtin 100 MG TABLET PO SCH (09:57)
[2018-02-06] MEDS: PHENOL 1.4% THROAT SPRAY 177 ML BOTTLE PO PRN ×2 (10:12→16:54)
[2018-02-06] MEDS: ALBUMIN 25% 25 GM in PREMIX 1 EACH IV SCH ×2 (10:19→22:02)
[2018-02-06] MEDS: traMADol 50 MG TABLET PO PRN (10:22)
[2018-02-06] MEDS: MULTIVITAMIN INJ 10 ML, TRACE ELEMENTS (5) 1 ML in AMINO ACIDS/DEXT/LYTES 4.25-5% 2,000 ML IV SCH (11:49)
[2018-02-06] MEDS: WARFARIN 7.5 MG TABLET PO SCH (17:20)
[2018-02-06] MEDS: risperiDONE 0.5 MG TABLET PO SCH (22:02)
[2018-02-06] MEDS: MONTELUKAST 10 MG TABLET PO SCH (22:03)
[2018-02-06] MEDS: ATORVASTATIN 20 MG TABLET PO SCH (22:04)
[2018-02-06] MEDS: LATANOPROST 0.005% OPH SOLN 2.5 ML BOTTLE BOTH EYES SCH (22:05)
[2018-02-07] MEDS: FUROSEMIDE 100 MG/10 ML VIAL IV SCH ×3 (00:19→21:30)
[2018-02-07 03:35] LABS: Basophils # 0.1 10*3/uL (0.0-0.2); Basophils % 0.4 % (0.0-0.8); Eosinophils # 0.6 10*3/uL (0.0-0.87); Eosinophils % 4.4 % (0.00-10.9); Hematocrit 24.8 VOL% (35.7-47.0); Hemoglobin 8.2 GM/DL (12.0-16.0); Immature Granulocytes % 0.6 %; Immature Granulocytes Absolute 0.08 #; Lymphocytes # 0.6 10*3/uL (1.4-4.0); Lymphocytes % 4.9 % (21.3-54.2); Mean Corpuscular HGB Conc 33.1 GM/DL (32-36); Mean Corpuscular Hemoglobin 22 PG (27-34); Mean Corpuscular Volume 67.2 FL (87-102); Mean Platelet Volume 10.4 FL (9.6-12.0); Monocytes # 1.4 10*3/uL (0.11-0.8); Monocytes % 10.6 % (1.7-12.7); Neutrophils # 10.3 10*3/uL (1.4-7.4); Neutrophils % 79.1 % (38.7-73.9); Platelet Count 294 T/CUMM (130-400); Red Blood Count 3.69 MC/CUMM (3.8-5.5); Red Cell Distribution Width 23.9 % (9.3-17.3)
[2018-02-07 03:39] LABS: INR 1.6; PT Patient Result 16.3 SECS
[2018-02-07 03:52] LABS: Calcium 10.1 MG/DL (8.5-10.1); Osmolality,Calculated 291.2 MOS/KG (273-304); Potassium 4.7 MMOL/L (3.5-5.1)
[2018-02-07 03:55] LABS: Prealbumin 14.9 MG/DL (20-40)
[2018-02-07 04:19] LABS: Band Neutrophils 2 % (0-10); Eosinophils 3 % (0-10); Hypochromasia 2+; Lymphocytes 3 % (20-55); Segmented Neutrophils 85 % (50-85); Total Cells Counted 100
[2018-02-07 04:20] LABS: Acanthocytes Few; Ovalocytes 1+; Platelet Estimate Normal; Target Cells 2+
[2018-02-07] MEDS: PHENOL 1.4% THROAT SPRAY 177 ML BOTTLE PO PRN ×3 (05:26→20:30)
[2018-02-07] MEDS: MEXILETINE 150 MG CAPSULE PO SCH ×3 (06:32→21:30)
[2018-02-07] MEDS ORDERED: sitaGLIPtin 25 MG TABLET PO SCH (09:00)
[2018-02-07] MEDS: INSULIN LISPRO 100 UNIT/ML SUBCUT SCH ×3 (09:56→17:07)
[2018-02-07] MEDS: MAGNESIUM OXIDE 400 MG TABLET PO SCH (09:59)
[2018-02-07] MEDS: POLYETHYLENE GLYCOL POWDER 17 GM PACK PO SCH (10:01)
[2018-02-07] MEDS: ENOXAPARIN 80 MG/0.8 ML SYRINGE SUBCUT SCH (10:02)
[2018-02-07] MEDS: ASPIRIN EC 81 MG TABLET PO SCH (10:03)
[2018-02-07] MEDS: FOLIC ACID 1 MG TABLET PO SCH (10:04)
[2018-02-07] MEDS: FERROUS SULFATE 325 MG TABLET PO SCH ×3 (10:04→20:26)
[2018-02-07] MEDS: POTASSIUM CHLORIDE 20 MEQ TABLET PO SCH (10:05)
[2018-02-07] MEDS: MINOXIDIL 2.5 MG TABLET PO SCH ×2 (10:05→20:27)
[2018-02-07] MEDS: amLODIPine 5 MG TABLET PO SCH ×2 (10:05→20:27)
[2018-02-07] MEDS: PANTOPRAZOLE 40 MG TABLET PO SCH (10:06)
[2018-02-07] MEDS: ALBUMIN 25% 25 GM in PREMIX 1 EACH IV SCH ×2 (10:26→20:28)
[2018-02-07] MEDS: MULTIVITAMIN INJ 10 ML, TRACE ELEMENTS (5) 1 ML in AMINO ACIDS/DEXT/LYTES 4.25-5% 2,000 ML IV SCH (10:36)
[2018-02-07] MEDS ORDERED: LEVOFLOXACIN INJ 750 MG in PREMIX 1 EACH IV ONE (13:00)
[2018-02-07] MEDS ORDERED: COLLAGENASE OINT 30 GM TUBE TOP SCH (13:30)
[2018-02-07] MEDS ORDERED: FAT EMULSION 20% 250 ML IV SCH (14:00)
[2018-02-07] MEDS: AMIODARONE 200 MG TABLET PO SCH ×2 (14:27→20:26)
[2018-02-07] MEDS: LABETALOL 200 MG TABLET PO SCH ×2 (15:19→20:39)
[2018-02-07] MEDS ORDERED: guaiFENesin/CODEINE 5 ML LIQUID PO PRN (15:56)
[2018-02-07] MEDS: ALBUTEROL/IPRATROPIUM 3 ML NEB RESP TX SCH ×2 (17:10→19:55)
[2018-02-07] MEDS: WARFARIN 7.5 MG TABLET PO SCH (17:25)
[2018-02-07] MEDS: risperiDONE 0.5 MG TABLET PO SCH (20:26)
[2018-02-07] MEDS: ATORVASTATIN 20 MG TABLET PO SCH (20:27)
[2018-02-07] MEDS: MONTELUKAST 10 MG TABLET PO SCH (20:27)
[2018-02-07] MEDS: LATANOPROST 0.005% OPH SOLN 2.5 ML BOTTLE BOTH EYES SCH (20:28)
[2018-02-08] MEDS: FUROSEMIDE 100 MG/10 ML VIAL IV SCH ×3 (00:21→09:06)
[2018-02-08] MEDS ORDERED: MORPHINE 4 MG/1 ML VIAL IV ONE ×2 (00:30→04:00)
[2018-02-08] MEDS: ALBUTEROL/IPRATROPIUM 3 ML NEB RESP TX SCH ×3 (00:33→07:20)
[2018-02-08] MEDS ORDERED: methylPREDNISolone SOD SUC 125 MG/2 ML VIAL IV ONE (03:00)
[2018-02-08] MEDS ORDERED: CLORAZEPATE 3.75 MG TABLET PO ONE (03:00)
[2018-02-08] MEDS: MEXILETINE 150 MG CAPSULE PO SCH (05:42)
[2018-02-08 05:57] LABS: Basophils % 0.1 % (0.0-0.8); Eosinophils # 0.1 10*3/uL (0.0-0.87); Eosinophils % 0.4 % (0.00-10.9); Hematocrit 26.5 VOL% (35.7-47.0); Hemoglobin 8.9 GM/DL (12.0-16.0); Immature Granulocytes % 0.6 %; Immature Granulocytes Absolute 0.09 #; Lymphocytes # 0.2 10*3/uL (1.4-4.0); Lymphocytes % 1.4 % (21.3-54.2); Mean Corpuscular HGB Conc 33.6 GM/DL (32-36); Mean Corpuscular Hemoglobin 23 PG (27-34); Mean Corpuscular Volume 67.4 FL (87-102); Monocytes # 0.7 10*3/uL (0.11-0.8); Monocytes % 4.2 % (1.7-12.7); Neutrophils # 14.7 10*3/uL (1.4-7.4); Neutrophils % 93.3 % (38.7-73.9); Platelet Count 329 T/CUMM (130-400); Red Blood Count 3.93 MC/CUMM (3.8-5.5); Red Cell Distribution Width 23.9 % (9.3-17.3); White Blood Count 15.8 T/CUMM (4-12)
[2018-02-08 06:18] LABS: Calcium 10.3 MG/DL (8.5-10.1); Osmolality,Calculated 292.8 MOS/KG (273-304); Potassium 5.2 MMOL/L (3.5-5.1)
[2018-02-08 06:34] LABS: Acanthocytes 2+; Anisocytosis 2+; Elliptocytes 2+; Eosinophils 2 % (0-10); Hypochromasia 2+; Lymphocytes 1 % (20-55); Macrocytosis Slight; Metamyelocytes 1 %; Microcytosis 2+; Ovalocytes 1+; Platelet Estimate Normal; Segmented Neutrophils 92 % (50-85); Target Cells 1+; Total Cells Counted 100
[2018-02-08 08:14] VITALS: BP 176/83
[2018-02-08] MEDS: INSULIN LISPRO 100 UNIT/ML SUBCUT SCH (10:04)
[2018-02-09] MEDS ORDERED: LEVOFLOXACIN INJ 500 MG in PREMIX 1 EACH IV SCH (13:00)
== END 2018-02-08 09:34 | disposition expired | DRG 291 ==
LOC: EDBD → EDUNIT# → N.ED 09:23 → N.EDINP 12:55 → SUATTDRO 12:55 → N.EDINP 13:56 → N.TELEN 14:27 → N.TELES 02-05 16:09
PROVIDERS: ADMIT Internal Medicine; ATTEND Internal Medicine